=== PATIENT | female | born 1950 | race Caucasian/White ===

== ENCOUNTER → 2016-07-01 | Outpatient (CLI) | payer BC ==
--- NOTE | 2016-07-01 13:45 | US ---
EXAMINATION TYPE: US venous doppler duplex LE BI DATE OF EXAM: 07/01/2016 12:41 PM COMPARISON: 11/26/2011 CLINICAL HISTORY: 66-year-old female R22.42,R22.41,M79.661,M79.662 Pain/Swelling bilateral. Bilateral feet pain and swelling x 1 week following long car ride SIDE PERFORMED: Bilateral TECHNIQUE: The lower extremity deep venous system is examined utilizing real time linear array sonog anuja with graded compression, doppler sonography and color-flow sonography. FINDINGS: VESSELS IMAGED: External Iliac Vein (EIV) Common Femoral Vein Deep Femoral Vein Greater Saphenous Vein * Femoral Vein Popliteal Vein Small Saphenous Vein * Proximal Calf Veins (* superficial vessels) Right Leg: Appears negative for DVT Left Leg: Appears negative for DVT IMPRESSION: No evidence for DVT within the bilateral lower extremities imaged from the groin to the upper calves.
== END | disposition home or self-care (01) ==
LOC: RADUSWWP 11:46
PROVIDERS: ATTEND Internal Medicine Hematology & Oncology
DX: M79.661 Pain in right lower leg (principal); M79.662 Pain in left lower leg; R22.43 Localized swelling, mass and lump, lower limb, bilateral
CPT/HCPCS: 93970

== ENCOUNTER → 2018-06-22 | Outpatient (CLI) | payer MEDICARE, OTHER ==
--- NOTE | 2018-06-22 15:22 | US ---
"EXAMINATION TYPE: US kidneys/renal and bladder DATE OF EXAM: 06/22/2018 COMPARISON: US 02/12/2010, CT 01/30/2010 CLINICAL HISTORY: R94.4 Abnormal Renal Function. Mesenteric cancer tumors [id number] per patient EXAM MEASUREMENTS: Right Kidney: 7.3 x 3.0 x 4.1 cm Left Kidney: 8.2 x 3.3 x 3.4 cm Right Kidney: Measuring small. Mild dilation of the renal pelvis Left Kidney: Measuring small. Nodular contour Bladder: Not well visualized due to large volume of pelvic ascites visualized Bilateral Jets seen: No Ascites visualized in the RUQ and midline pelvis. There is increased cortical echogenicity in the right kidney which is diminished in size from normal range. There is fullness of right renal pelvis and calyces. Left kidney is slightly larger within imp roved cortical thickness, some vague hypoechoic areas in the cortex could reflect subcentimeter cysts . There is nonsimple fluid anterior superior to the bladder towards end of study. IMPRESSION: Suspect mild right-sided hydronephrosis. Atrophy in both kidneys noted. Nonsimple moderate to severe pelvic ascites. Advise further investigation with CT. A Yellow level critical message alert has been initiated for Humble Woody MD via the [employer] 36 0 | Critical Results System on 06/22/2018 3:20 PM. This message alert has been sent to Humble Woody MD via the preferences provided by the clinician for the receipt of Radiology Critical Findings. [facility], [place] [id number]."
== END | disposition home or self-care (01) ==
LOC: RADUSWWP 14:47
PROVIDERS: ATTEND Internal Medicine Hematology & Oncology
DX: N26.1 Atrophy of kidney (terminal) (principal); R18.8 Other ascites
CPT/HCPCS: 76770

== ENCOUNTER 2018-07-21 08:58 | Day surgery (SDC) | payer MEDICARE, OTHER ==
[2018-07-21 09:57] VITALS: RESP 16; TEMP 97.8
[2018-07-21 10:05] LABS: Mean Platelet Volume 7.1; Platelet Count 629 k/uL (150-450)
[2018-07-21 11:15] VITALS: BP 143/76; PULSE 82
--- NOTE | 2018-07-21 13:40 | US ---
Therapeutic paracentesis. DATE OF EXAM: 07/21/2018 CLINICAL HISTORY: Ascites The procedure was discussed with the patient. The risks, complications, benefits, and alternatives we re discussed and any questions were answered. Informed consent was obtained. The patient was placed s upine on the ultrasound table and prepped and draped in the usual sterile fashion. All elements of maximal barrier technique were utilized. Under ultrasound guidance, access into the right lower quadrant was obtained, via the paracentesis catheter system and direct ultrasound guidanc e. Approximately 2.3 liters of straw-colored fluid was removed. The patient was stable throughout the pr ocedure and remained stable upon discharge from Department of Radiology. IMPRESSION: Successful therapeutic paracentesis under ultrasound guidance.
== END 2018-07-21 11:30 | disposition home or self-care (01) ==
LOC: RADPROMAIN 08:58
PROVIDERS: ATTEND Internal Medicine Hematology & Oncology
DX: R18.8 Other ascites (principal); C7A.1 Malignant poorly differentiated neuroendocrine tumors; K21.0 Gastro-esophageal reflux disease with esophagitis; K57.90 Diverticulosis of intestine, part unspecified, without perforation or abscess without bleeding; F17.200 Nicotine dependence, unspecified, uncomplicated; Z79.891 Long term (current) use of opiate analgesic; Z79.899 Other long term (current) drug therapy
CPT/HCPCS: 36415; 49083; 82565; 85049; 85610

== ENCOUNTER 2018-08-05 18:18 | Inpatient (IN) | payer MEDICARE, OTHER ==
[2018-08-05] MEDS ORDERED: ONDANSETRON 4 MG/2 ML VIAL IVP STA (18:53)
[2018-08-05] MEDS ORDERED: SODIUM CHLORIDE 0.9% 1,000 ML IV STA (18:53)
[2018-08-05] MEDS ORDERED: HYDROmorphone 1 MG/ML 1 ML SYRINGE IVP STA ×2 (18:53→21:44)
--- NOTE | 2018-08-05 19:03 | ED ---
Abdominal Pain HPI - General Chief Complaint: Abdominal Pain Stated Complaint: abdominal pain Time Seen by Provider: 08/05/18 18:37 Source: patient Mode of arrival: wheelchair Limitations: no limitations - History of Present Illness Initial Comments: 68 year-old female patient with history of neuroendocrine tumors, not currently receiving any chemotherapy presents to the emergency department today for evaluation of abdominal pain. Patient states that she generally has some level of abdominal pain however this morning the pain increases significantly. Patient states that the pain is mostly located in the left lower quadrant abdomen however her entire abdomen does hurt. Patient states she is having some mild low back pain with this. Patient denies any nausea or vomiting with this. Denies any constipation or diarrhea. Denies any known fever or chills. Patient denies any hematochezia or melena. Patient denies any history of diverticulitis . Patient did have labs done at the beginning of July, did show urinary tract infection however patient states she has not received any antibiotics for this. Patient denies any recent rash, shortness breath, chest pain, numbness, tingling, dizziness, weakness, hematuria, dysuria, urinary urgency, urinary frequency, headache, visual changes, or any other complaints. - Related Data Home Medications Medication Instructions Recorded Confirmed Calcitriol 0.5 mcg PO WEEKLY 07/19/18 07/21/18 Hydrocodone/Acetaminophen [[place] 1 tab PO Q6HR PRN 07/19/18 07/21/18 5-325] Magnesium Oxide [Mag-Ox] 400 mg PO DAILY 07/19/18 07/21/18 Non-Formulary Drug [Non Formulary 25 mg PO WEEKLY 07/19/18 07/21/18 Drug] Non-Formulary Drug [Non Formulary 325 mg PO BID 07/19/18 07/21/18 Drug] Sodium Bicarbonate Tab 1,300 mg PO BID 07/19/18 07/21/18 fentaNYL 75MCG/HR PATCH [Duragesic 1 patch TRANSDERM Q72H 07/19/18 07/21/18 75MCG/HR] Allergies Allergy/AdvReac Type Severity Reaction Status Date / Time No Known Allergies Allergy Verified 08/05/18 18:29 Review of Systems ROS Statement: Those systems with pertinent positive or pertinent negative responses have been documented in the HPI. ROS Other: All systems not noted in ROS Statement are negative. Past Medical History Past Medical History: Cancer Additional Past Medical History / Comment(s): neuroendocrine tumor, renal insuff icency History of Any Multi-Drug Resistant Organisms: None Reported Past Surgical History: Orthopedic Surgery Additional Past Surgical History / Comment(s): right leg broken and surgery times 2 Past Anesthesia/Blood Transfusion Reactions: No Reported Reaction Past Psychological History: No Psychological Hx Reported Smoking Status: Current every day smoker Past Alcohol Use History: None Reported Past Drug Use History: None Reported - Past Family History Mother Family Medical History: CVA/TIA Additional Family Medical History / Comment(s): blood clot General Exam Limitations: no limitations General appearance: alert, in no apparent distress, other (Physical well- developed, well-nourished adult female patient in no acute distress. Vital signs upon presentation are temperature 99.2F, pulse 98, respirations 18, blood pressure 146/81, pulse ox 98% on room air.) Eye exam: Present: normal appearance, PERRL, EOMI. Absent: scleral icterus, conjunctival injection, periorbital swelling ENT exam: Present: normal exam, normal oropharynx, mucous membranes moist Respiratory exam: Present: normal lung sounds bilaterally. Absent: respiratory distress, wheezes, rales, rhonchi, stridor Cardiovascular Exam: Present: regular rate, normal rhythm, normal heart sounds. Absent: systolic murmur, diastolic murmur, rubs, gallop, clicks GI/Abdominal exam: Present: soft, tenderness (Generalized tenderness, worse over the left lower quadrant), normal bowel sounds. Absent: distended, guarding, rebound, rigid Back exam: Present: normal inspection. Absent: CVA tenderness (R), CVA tenderness (L) Neurological exam: Present: alert, oriented X3, CN II-XII intact Psychiatric exam: Present: normal affect, normal mood Skin exam: Present: warm, dry, intact, normal color. Absent: rash Course Vital Signs 08/05/18 08/05/18 08/06/18 18:27 21:45 02:00 Temperature 99.2 F Pulse Rate 98 83 78 Respiratory 18 20 18 Rate Blood Pressure 146/81 150/83 144/78 O2 Sat by Pulse 98 99 98 Oximetry Medical Decision Making - Medical Decision Making 68 year-old female patient with past medical history significant for neuroe ndocrine tumors diagnosed in 2010, last received chemotherapy 2 months ago presents to the emergency department today for evaluation of abdominal pain. Physical examination did reveal left lower quadrant and suprapubic abdominal tenderness. CT of the abdomen and pelvis was performed and showed moderate to severe ascites and right-sided hydronephrosis. Urine was positive for infection. This was sent for culture. Patient also found to be hypokalemic, this will be replaced. Patient will be admitted to [facility]. I did discuss findings and plan with the patient, she is agreeable. - Lab Data Result diagrams: 08/05/18 19:35 08/05/18 19:35 Lab Results 08/05/18 08/05/18 08/05/18 Range/Units 19:35 19:35 19:35 WBC 9.0 (3.8-10.6) k/uL RBC 3.77 L (3.80-5.40) m/uL Hgb 10.5 L (11.4-16.0) gm/dL Hct 33.2 L (34.0-46.0) % MCV 87.9 (80.0-100.0) fL MCH 27.7 (25.0-35.0) pg MCHC 31.6 (31.0-37.0) g/dL RDW 21.6 H (11.5-15.5) % Plt Count 395 (150-450) k/uL Neutrophils % 89 % Lymphocytes % 5 % Monocytes % 5 % Eosinophils % 1 % Basophils % 0 % Neutrophils # 7.9 H (1.3-7.7) k/uL Lymphocytes # 0.4 L (1.0-4.8) k/uL Monocytes # 0.4 (0-1.0) k/uL Eosinophils # 0.1 (0-0.7) k/uL Basophils # 0.0 (0-0.2) k/uL Hypochromasia Slight Anisocytosis Moderate Sodium 135 L (137-145) mmol/L Potassium 2.8 L (3.5-5.1) mmol/L Chloride 93 L (98-107) mmol/L Carbon Dioxide 31 H (22-30) mmol/L Anion Gap 11 mmol/L BUN 17 (7-17) mg/dL Creatinine 1.40 H (0.52-1.04) mg/dL Est GFR (CKD-EPI)AfAm 45 (>60 ml/min/1.73 sqM) Est GFR (CKD-EPI)NonAf 39 (>60 ml/min/1.73 sqM) Glucose 96 (74-99) mg/dL Plasma Lactic Acid Ilia 1.2 (0.7-2.0) mmol/L Calcium 7.1 L (8.4-10.2) mg/dL Total Bilirubin 0.6 (0.2-1.3) mg/dL AST 13 L (14-36) U/L ALT 10 (9-52) U/L Alkaline Phosphatase 229 H (38-126) U/L Total Protein 6.0 L (6.3-8.2) g/dL Albumin 3.0 L (3.5-5.0) g/dL Amylase <30 L (30-110) U/L Lipase 32 (23-300) U/L Urine Color Urine Appearance (Clear) Urine pH (5.0-8.0) Ur Specific [place] (1.001-1.035) Urine Protein (Negative) Urine Glucose (UA) (Negative) Urine Ketones (Negative) Urine Blood (Negative) Urine Nitrite (Negative) Urine Bilirubin (Negative) Urine Urobilinogen (<2.0) mg/dL Ur Leukocyte Esterase (Negative) Urine RBC (0-5) /hpf Urine WBC (0-5) /hpf Urine WBC Clumps (None) /hpf Ur Squamous Epith Cells (0-4) /hpf Urine Bacteria (None) /hpf Hyaline Casts (0-2) /lpf 08/05/18 Range/Units 22:29 WBC (3.8-10.6) k/uL RBC (3.80-5.40) m/uL Hgb (11.4-16.0) gm/dL Hct (34.0-46.0) % MCV (80.0-100.0) fL MCH (25.0-35.0) pg MCHC (31.0-37.0) g/dL RDW (11.5-15.5) % Plt Count (150-450) k/uL Neutrophils % % Lymphocytes % % Monocytes % % Eosinophils % % Basophils % % Neutrophils # (1.3-7.7) k/uL Lymphocytes # (1.0-4.8) k/uL Monocytes # (0-1.0) k/uL Eosinophils # (0-0.7) k/uL Basophils # (0-0.2) k/uL Hypochromasia Anisocytosis Sodium (137-145) mmol/L Potassium (3.5-5.1) mmol/L Chloride (98-107) mmol/L Carbon Dioxide (22-30) mmol/L Anion Gap mmol/L BUN (7-17) mg/dL Creatinine (0.52-1.04) mg/dL Est GFR (CKD-EPI)AfAm (>60 ml/min/1.73 sqM) Est GFR (CKD-EPI)NonAf (>60 ml/min/1.73 sqM) Glucose (74-99) mg/dL Plasma Lactic Acid Ilia (0.7-2.0) mmol/L Calcium (8.4-10.2) mg/dL Total Bilirubin (0.2-1.3) mg/dL AST (14-36) U/L ALT (9-52) U/L Alkaline Phosphatase (38-126) U/L Total Protein (6.3-8.2) g/dL Albumin (3.5-5.0) g/dL Amylase (30-110) U/L Lipase (23-300) U/L Urine Color Light Yellow Urine Appearance Cloudy H (Clear) Urine pH 7.5 (5.0-8.0) Ur Specific [place] 1.011 (1.001-1.035) Urine Protein 1+ H (Negative) Urine Glucose (UA) Negative (Negative) Urine Ketones Trace H (Negative) Urine Blood Small H (Negative) Urine Nitrite Positive H (Negative) Urine Bilirubin Negative (Negative) Urine Urobilinogen <2.0 (<2.0) mg/dL Ur Leukocyte Esterase Large H (Negative) Urine RBC 5 (0-5) /hpf Urine WBC >182 H (0-5) /hpf Urine WBC Clumps Many H (None) /hpf Ur Squamous Epith Cells 1 (0-4) /hpf Urine Bacteria Moderate H (None) /hpf Hyaline Casts 2 (0-2) /lpf - Radiology Data Radiology results: report reviewed, image reviewed CT abdomen and pelvis without contrast was obtained. Report was reviewed in its entirety. Impression by Dr. Coles shows mild right-sided hydronephrosis redemonstrated without obstructing calculus clearly seen, this is not significantly changed from prior study. Moderate to severe abdominal pelvic ascites with multiple tiny bilateral pleural effusions. Etiology uncertain. No bowel obstruction. Suboptimal evaluation without enteric contrast Disposition Clinical Impression: Abdominal pain, Ascites, Hypokalemia, Urinary tract infection Disposition: ADMITTED IP TO THIS [facility] Condition: Serious Decision to Admit Reason: Admit from EC Decision Date: 08/06/18 Decision Time: 01:08
[2018-08-05 19:47] LABS: Anisocytosis Moderate; Basophils % (A) 0 %; Eosinophils # (A) 0.1 k/uL (0-0.7); Eosinophils % (A) 1 %; HCT 33.2 % (34.0-46.0); HGB 10.5 gm/dL (11.4-16.0); Hypochromasia Slight; Lymphocytes # (A) 0.4 k/uL (1.0-4.8); Lymphocytes % (A) 5 %; MCH 27.7 pg (25.0-35.0); MCHC 31.6 g/dL (31.0-37.0); MCV 87.9 fL (80.0-100.0); Mean Platelet Volume 7.5; Monocytes # (A) 0.4 k/uL (0-1.0); Monocytes % (A) 5 %; Neutrophils # (A) 7.9 k/uL (1.3-7.7); Neutrophils % (A) 89 %; Platelet Count 395 k/uL (150-450); RBC 3.77 m/uL (3.80-5.40); RDW 21.6 % (11.5-15.5)
[2018-08-05 19:59] LABS: ALT 10 U/L (9-52); AST 13 U/L (14-36); Alkaline Phosphatase 229 U/L (38-126); Amylase <30 U/L (30-110); Anion Gap 11 mmol/L; Blood Urea Nitrogen 17 mg/dL (7-17); Calcium 7.1 mg/dL (8.4-10.2); Carbon Dioxide 31 mmol/L (22-30); Chloride 93 mmol/L (98-107); Glucose 96 mg/dL (74-99); Lipase 32 U/L (23-300); Potassium 2.8 mmol/L (3.5-5.1); Sodium 135 mmol/L (137-145); Total Bilirubin 0.6 mg/dL (0.2-1.3)
--- NOTE | 2018-08-05 21:28 | CT ---
EXAMINATION TYPE: CT abdomen pelvis wo con DATE OF EXAM: 08/05/2018 HISTORY: left sided abdominal and flank pain, diarrhea CT DLP: 264.7 mGycm. Automated Exposure Control for Dose Reduction was Utilized. TECHNIQUE: CT scan of the abdomen and pelvis is performed without oral or IV contrast. COMPARISON: CT abdomen and pelvis January 30, 2010. FINDINGS: Within the limitations of a non-contrast study, the following observations are made. LUNG BASES: There are new small to tiny bilateral pleural effusions partially imaged. LIVER/GB: There are hyperdense gallstones filling gallbladder lumen. PANCREAS: No significant abnormality is seen. SPLEEN: No significant abnormality is seen. ADRENALS: No significant abnormality is seen. KIDNEYS: No renal stones are evident bilaterally. No left-sided hydronephrosis. There is mild right-s ided hydronephrosis with extrarenal pelvis redemonstrated without obstructing calculus clearly seen. BOWEL: Evaluation of bowel is suboptimal secondary to lack of enteric contrast. Stomach is poorly dis tended and thus suboptimally evaluated. There is no suspicious small or large bowel dilatation. GENITAL ORGANS: Anteverted uterus is seen in both ovaries felt present near axial image 96 felt [place] l in size. LYMPH NODES: No definitive greater than 1cm abdominal or pelvic lymph nodes are appreciated. Slightly suboptimal without IV contrast. OSSEOUS STRUCTURES: Metallic hardware in the right proximal femur is partially imaged. There is moder ate narrowing of both hip joints. There is moderate to severe narrowing lumbosacral junction. OTHER: Moderate to severe abdominal and pelvic ascites is present. There is mild to moderate calcifie d plaque in the aorta extending into branch vessels. IMPRESSION: 1. Mild right-sided hydronephrosis redemonstrated without obstructing calculus clearly seen, this is not significantly changed from prior study. 2. Moderate to severe abdominal and pelvic ascites with multiple tiny bilateral pleural effusions. Et iology uncertain. Imaging guided paracentesis for diagnostic and/or therapeutic benefits can be perfo rmed to further evaluate if desired. 3. No bowel obstruction. Suboptimal evaluation without enteric contrast.
[2018-08-05 23:12] LABS: Appearance,Urine Cloudy (Clear); Bacteria,Urine Moderate /hpf; Bilirubin,Urine Negative (Negative); Blood,Urine Small (Negative); Color,Urine Light Yellow; Glucose,Urine (UA) Negative (Negative); Hyaline Casts,Urine 2 /lpf (0-2); Ketones,Urine Trace (Negative); Leukocyte Esterase,Urine Large (Negative); Nitrite,Urine Positive (Negative); PH, Urine 7.5 (5.0-8.0); Protein,Urine 1+ (Negative); RBC,Urine 5 /hpf (0-5); Specific Gravity,Urine 1.011 (1.001-1.035); Squamous Epithelial Cell,Urine 1 /hpf (0-4); Urobilinogen,Urine <2.0 mg/dL (<2.0); WBC,Urine >182 /hpf (0-5)
[2018-08-06] MEDS ORDERED: Potassium Replacement Protocol 1 EACH MISC MISCELLANE PRN (00:08)
[2018-08-06] MEDS ORDERED: NALOXONE 0.4 MG/ML 1 ML VIAL IV PRN (01:06)
[2018-08-06] MEDS ORDERED: ONDANSETRON 4 MG/2 ML VIAL IVP PRN (01:06)
[2018-08-06] MEDS: POTASSIUM CHLORIDE 10 MEQ in WATER FOR INJECTION 1 100ML.BAG IVPB SCH ×6 (02:00→10:06)
[2018-08-06] MEDS ORDERED: HYDROcodone/APAP 5-325MG 1 EACH TAB PO PRN (02:57)
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
[2018-08-06] MEDS: HYDROmorphone 1 MG/ML 1 ML SYRINGE IVP PRN ×5 (03:14→21:01)
[2018-08-06] MEDS: metroNIDAZOLE 500 MG TAB PO SCH ×4 (04:51→21:01)
[2018-08-06] MEDS: SODIUM BICARBONATE TAB 650 MG TAB PO SCH ×2 (08:18→21:01)
[2018-08-06] MEDS: NICOTINE 21MG/24HR PATCH TRANSDERM SCH (08:19)
[2018-08-06] MEDS: HEPARIN SODIUM,PORCINE 5,000 UNIT/ML 1 ML VIAL SQ SCH ×2 (08:19→16:49)
[2018-08-06 11:55] LABS: Albumin 2.4 g/dL (3.5-5.0); Calcium 6.6 mg/dL (8.4-10.2); Magnesium 1.4 mg/dL (1.6-2.3); Potassium 4.3 mmol/L (3.5-5.1); Total Bilirubin 0.6 mg/dL (0.2-1.3); Total Protein 4.9 g/dL (6.3-8.2)
--- NOTE | 2018-08-06 12:14 | P.PN ---
Progress Note - Text Progress Note Date: 08/06/18 68-year-old female with PMH of neuroendocrine tumors presents the ED for abdominal pain. CT abdomen and pelvis showing mild right-sided hydronephrosis which is redemonstrated, moderate to severe abdominal and pelvic ascites. Patient is admitted for UTI and abdominal pain likely secondary to large ascites, rule out SBP. Patient was seen this morning. No acute events overnight. Patient reports considerable improvement in her abdominal pain since being started on Dilaudid. She denies any nausea or vomiting. She reports 2 weeks of multiple episodes of watery diarrhea. States that she saw her oncologist recently and underwent paracentesis. Patient is in no acute distress. Patient is alert and oriented 3 Assessment and Plan 1. Urinary tract infection 2. Large ascites, unknown etiology 3. Acute diarrhea, rule out colitis 4. Hypokalemia 5. History of neuroendocrine tumor 6. CKD stage III 7. Severe protein calorie malnutrition UA shows positive nitrite, large leukocyte esterase. Plan: Rocephin IV. Follow urine culture. Follow blood culture. Unknown etiology. Likely cause of abdominal pain. States that she recently underwent paracentesis with her oncologist. Plan: IR consultation for paracentesis. Follow oncology recommendations. Rule out infectious cause due to history of antibiotic use. Plans: Follow C. diff. Continue Flagyl by mouth and Rocephin IV. Potassium 2.8 likely secondary to diarrhea. Plans: Replace via protocol. Daily BMP. Plans: Follow-up in the outpatient setting. Creatinine 1.40, within normal limits for previous admissions. Plans: Avoid nephrotoxins. Daily BMP. Plans: Follow-up dietitian.
[2018-08-06 13:39] VITALS: BMI 14.3
[2018-08-07] MEDS: HYDROmorphone 1 MG/ML 1 ML SYRINGE IVP PRN ×7 (01:05→23:41)
[2018-08-07] MEDS: HEPARIN SODIUM,PORCINE 5,000 UNIT/ML 1 ML VIAL SQ SCH ×3 (01:08→16:59)
--- NOTE | 2018-08-07 08:37 | P.PN ---
Subjective Progress Note Date: 08/07/18 Principal diagnosis: Abdominal pain Patient was seen and examined. No acute events overnight. Patient continues to report abdominal pain, generalized but worse in the bilateral lower quadrants. Pain is described as cramping and twisting in nature. Patient reports not having a bowel movement since admission. She denies any dysuria or urinary frequency. States that she attempted [employer] chicken salad sandwich yesterday, had some abdominal pain and nausea but no vomiting. She denies any chest pain, shortness of breath or palpitations. Objective - Vital Signs Vital signs: Vital Signs Temp 98.2 F 08/07/18 05:00 Pulse 93 08/07/18 05:00 Resp 16 08/07/18 05:00 BP 138/75 08/07/18 05:00 Pulse Ox 93 L 08/07/18 05:00 Intake & Output 08/06/18 08/07/18 08/07/18 18:59 06:59 18:59 Intake Total 300 Balance 300 Weight 41.73 kg Intake: Intake, IV Titration 300 Amount Potassium Chloride 10 meq 300 In Water For Injection 1 100ml.bag @ 100 mls/hr IVPB Q1HR [facility] Rx#: [id number] Other: # Voids 2 - Exam General: [non toxic], [no distress], [cachectic] Derm: [warm], [dry] Head: [atraumatic], [normocephalic], [symmetric] Eyes: [EOMI], [no lid lag], [anicteric sclera] Mouth: [no lip lesion], [mucus membranes moist] Cardiovascular: [S1S2 reg], [no murmur], [positive posterior tibial pulse bilateral], Lungs: [Decreased breath sounds bilateral], [no rhonchi, no rales] , [no accessory muscle use] Abdominal: [soft], [tenderness to palpation of the bilateral lower quadrants without rebound], [no guarding, nondistended], [no appreciable organomegaly] Ext: [no gross muscle atrophy], [no edema], [no contractures] Neuro: [no focal neuro deficits] Psych: [Alert], [oriented], [appropriate affect] - Labs CBC & Chem 7: 08/05/18 19:35 08/06/18 10:47 Labs: Abnormal Lab Results - Last 24 Hours (Table) 08/06/18 Range/Units 10:47 Sodium 134 L (137-145) mmol/L Creatinine 1.32 H (0.52-1.04) mg/dL Glucose 61 L (74-99) mg/dL Calcium 6.6 L (8.4-10.2) mg/dL Magnesium 1.4 L (1.6-2.3) mg/dL AST 11 L (14-36) U/L Alkaline Phosphatase 157 H (38-126) U/L Total Protein 4.9 L (6.3-8.2) g/dL Albumin 2.4 L (3.5-5.0) g/dL Microbiology - Last 24 Hours (Table) 08/05/18 19:35 Blood Culture - Preliminary Blood No Growth after 24 hours 08/05/18 22:29 Urine Culture - Preliminary Urine,Voided Assessment and Plan Assessment: Assessment and Plan 1. Urinary tract infection 2. Large ascites, unknown etiology 3. Acute diarrhea, rule out colitis 4. Hypokalemia 5. History of neuroendocrine tumor 6. CKD stage III 7. Severe protein calorie malnutrition UA shows positive nitrite, large leukocyte esterase. Plan: Rocephin IV. Follow urine culture. Follow blood culture. Unknown etiology. Likely cause of abdominal pain. States that she recently underwent paracentesis with her oncologist. Plan: IR consultation for paracentesis. Follow oncology recommendations. Rule out infectious cause due to history of antibiotic use. Plans: Follow C. diff. Continue Flagyl by mouth and Rocephin IV. Potassium 2.8 likely secondary to diarrhea. Plans: Normal today. Replace via protocol. Daily BMP. Plans: Follow-up in the outpatient setting. Creatinine 1.40-1.32, within normal limits for previous admissions. Plans: Avoid nephrotoxins. Daily BMP. Plans: Follow-up dietitian. Patient admitted for abdominal pain thought to be secondary to ascites and UTI. She is on IV and antibiotics by mouth. IR consultation pending. Nothing by annelise baker for possible paracentesis. Oncology consulted.
[2018-08-07] MEDS: SODIUM BICARBONATE TAB 650 MG TAB PO SCH ×2 (08:42→20:22)
[2018-08-07] MEDS: NICOTINE 21MG/24HR PATCH TRANSDERM SCH (08:42)
[2018-08-07] MEDS: metroNIDAZOLE 500 MG TAB PO SCH ×3 (08:42→21:53)
[2018-08-07 09:06] LABS: INR 1.1 (<1.2); Prothrombin Time 11.4 sec (9.0-12.0)
[2018-08-07 09:09] LABS: Albumin 2.5 g/dL (3.5-5.0); Calcium 6.8 mg/dL (8.4-10.2); Potassium 4.1 mmol/L (3.5-5.1); Total Bilirubin 0.4 mg/dL (0.2-1.3); Total Protein 5.2 g/dL (6.3-8.2)
[2018-08-07 09:15] LABS: Anisocytosis Moderate; Basophils % (A) 0 %; Eosinophils # (A) 0.2 k/uL (0-0.7); Eosinophils % (A) 2 %; HGB 9.4 gm/dL (11.4-16.0); Hypochromasia Moderate; Lymphocytes # (A) 0.8 k/uL (1.0-4.8); Lymphocytes % (A) 9 %; MCH 27.4 pg (25.0-35.0); MCHC 30.2 g/dL (31.0-37.0); MCV 90.7 fL (80.0-100.0); Macrocytosis Slight; Mean Platelet Volume 7.7; Monocytes # (A) 0.6 k/uL (0-1.0); Monocytes % (A) 7 %; Neutrophils # (A) 7.4 k/uL (1.3-7.7); Neutrophils % (A) 81 %; Platelet Count 364 k/uL (150-450); RBC 3.42 m/uL (3.80-5.40); RDW 21.6 % (11.5-15.5); WBC 9.2 k/uL (3.8-10.6)
[2018-08-07 15:36] LABS: Appearance,BF Cloudy; Color,BF Yellow; RBC, Body Fluid 960 /uL
[2018-08-07 15:37] LABS: Nucleated Cells, Body Fluid 88 /uL
[2018-08-07 15:38] LABS: Mononuclear WBC,Body Fluid 95 %; Polynuclear WBC,Body Fluid 5 %; Total Cells Counted,Body Fluid 100
--- NOTE | 2018-08-07 15:51 | US ---
EXAMINATION TYPE: US paracentesis abd w/image DATE OF EXAM: 08/07/2018 COMPARISON: NONE HISTORY: Ascites. PROCEDURE: Maximal barrier technique was utilized. The skin overlying a suitable pocket of fluid was localized with ultrasound and the overlying skin was prepped and draped. Ultrasound was utilized with sterile technique. Lidocaine was used for local anesthesia and a skin tamia made with a scalpel. Catheter was advanced under direct ultrasound guidance into a suitable pocket of fluid and approximately 1 liters of serous fluid were removed. Catheter was withdrawn and hemostasis achieved. There is no immediate complication; the patient is discharged in stable condition. IMPRESSION: STATUS POST ULTRASOUND GUIDED PARACENTESIS FOR PALLIATION OF ASCITES. THIS PROCEDURE WA S PERFORMED BY THE UNDERSIGNED. Specimen sent for laboratory analysis.
--- NOTE | 2018-08-07 19:19 | P.CONS ---
History of Present Illness - Reason for Consult Consult date: 08/07/18 NET, recurrent ascites Requesting physician: Brandt Lux - Chief Complaint abd pain - History of Present Illness Mrs. Murillo is a very long-standing patient of Dr. 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 Patient was also on ant icoagulation for history of DVT diagnosed in March 2010-discontinued about 2013 secondary to GI bleed). Patient has been treated with 20mg Sandostatin LAR intramuscularly and Afinitor (dose has fluctuated as well as the twice a day dosing based on patient tolerance). She has had relatively stable disease over the years with follow-up imaging as ordered. Over the years she has had co mplaints of abdominal pain, mostly after eating is the aggravating factor. She treats with fentanyl and [place], she will also hold her afinitor if she is having symptoms. Unfortunately though, the last 2 weeks she has been having recurrent, severe ascites. This is absolutely brand-new for her. Her abdominal discomfort is much more intense and her typical regimen of fentanyl and [place] is no longer adequate. Patient states that she can eat, denies nausea or vomiting, no chest pain, cough, difficulty in breathing, abdominal distention is currently okay being she just had a paracentesis. She had para last week as well. She does have some swelling in the ankles and feet, this is not completely unusual for her. She was to be scheduled for a PET scan here in the next week or so. In the last few years she has had 2 traumatic falls requiring repair of fractures. Review of Systems 14 point review of systems is negative except as stated in HPI Past Medical History Past Medical History: Cancer, Deep Vein Thrombosis (DVT), GI Bleed Additional Past Medical History / Comment(s): neuroendocrine tumor, renal insufficency History of Any Multi-Drug Resistant Organisms: None Reported Past Surgical History: Orthopedic Surgery Additional Past Surgical History / Comment(s): right leg broken and surgery times 2 Past Anesthesia/Blood Transfusion Reactions: No Reported Reaction Past Psychological History: No Psychological Hx Reported Smoking Status: Current every day smoker Past Alcohol Use History: None Reported Past Drug Use History: None Reported - Past Family History Mother Family Medical History: CVA/TIA Additional Family Medical History / Comment(s): blood clot Medications and Allergies Home Medications Medication Instructions Recorded Confirmed Type Calcitriol 0.5 mcg PO MOWEFR 07/19/18 08/06/18 History Hydrocodone/Acetaminophen [[place] 1 tab PO Q6HR PRN 07/19/18 08/06/18 History 5-325] Magnesium Oxide [Mag-Ox] 400 mg PO DAILY 07/19/18 08/06/18 History Sodium Bicarbonate Tab 1,300 mg PO BID 07/19/18 08/06/18 History fentaNYL 75MCG/HR PATCH [Duragesic 1 patch TRANSDERM Q72H 07/19/18 08/06/18 History 75MCG/HR] Ergocalciferol (Vitamin D2) 50,000 unit PO WE 08/06/18 08/06/18 History [Vitamin D2] Ferrous Sulfate [Feosol] 325 mg PO DAILY 08/06/18 08/06/18 History Metoclopramide [Reglan] 10 mg PO AC-TID 08/06/18 08/06/18 History Potassium 99 mg PO DAILY 08/06/18 08/06/18 History Allergies Allergy/AdvReac Type Severity Reaction Status Date / Time No Known Allergies Allergy Verified 08/06/18 08:02 Physical Exam Vitals: Vital Signs Temp Pulse Resp BP Pulse Ox 08/07/18 13:00 97.4 F L 85 17 159/79 95 08/07/18 11:55 85 18 158/73 97 08/07/18 11:48 86 18 147/85 97 08/07/18 11:31 80 18 139/74 96 08/07/18 11:21 83 18 163/70 98 08/07/18 11:02 88 18 142/70 96 08/07/18 05:00 98.2 F 93 16 138/75 93 L 08/06/18 21:00 97.8 F 97 16 116/68 96 Intake and Output 08/07/18 08/07/18 08/07/18 06:59 14:59 22:59 Other: # Voids 2 2 - Constitutional General appearance: cooperative, no acute distress, thin - EENT Eyes: anicteric sclerae, EOMI, poor dentition ENT: hearing grossly normal, normal oropharynx - Neck Neck: no lymphadenopathy - Respiratory Respiratory: bilateral: CTA, diminished - Cardiovascular Rhythm: regular Heart sounds: normal: S1, S2 Abnormal Heart Sounds: no systolic murmur, no diastolic murmur, no rub, no S3 Gallop, no S4 Gallop, no click, no other foot Peripheral Edema: bilateral: 2+ - Gastrointestinal General gastrointestinal: no absent bowel sounds, no decreased bowel sounds, no distended, no hepatomegaly, no hyperactive bowel sounds, normal bowel sounds, no organomegaly, no rigid, no scaphoid, soft, no splenomegaly, tenderness, no umbilical hernia, no ventral hernia - Neurologic Neurologic: CNII-XII intact - Musculoskeletal Musculoskeletal: generalized weakness - Psychiatric Psychiatric: A&O x's 3, appropriate affect, intact judgment & insight Results CBC & Chem 7: 08/07/18 08:33 08/07/18 07:56 Labs: Abnormal Lab Results - Last 24 Hours (Table) 08/07/18 08/07/18 Range/Units 07:56 08:33 RBC 3.42 L (3.80-5.40) m/uL Hgb 9.4 L (11.4-16.0) gm/dL Hct 31.0 L (34.0-46.0) % MCHC 30.2 L (31.0-37.0) g/dL RDW 21.6 H (11.5-15.5) % Lymphocytes # 0.8 L (1.0-4.8) k/uL Sodium 135 L (137-145) mmol/L BUN 18 H (7-17) mg/dL Creatinine 1.51 H (0.52-1.04) mg/dL Calcium 6.8 L (8.4-10.2) mg/dL AST 9 L (14-36) U/L Alkaline Phosphatase 170 H (38-126) U/L Total Protein 5.2 L (6.3-8.2) g/dL Albumin 2.5 L (3.5-5.0) g/dL Microbiology - Last 24 Hours (Table) 08/07/18 12:00 Body Fluid Culture - Preliminary Ascites Fluid 08/05/18 22:29 Urine Culture - Preliminary Urine,Voided Gram Neg Bacilli 08/05/18 19:35 Blood Culture - Preliminary Blood No Growth after [address] scan - abdomen: report reviewed CT scan - pelvis: report reviewed Assessment and Plan (1) Neuro-endocrine carcinoma Narrative/Plan: Patient has a long-standing history of neuro tumor. She has been treated with monthly Sandostatin and Afinitor, low dose, 1-2 times a day based on what she can tolerate. She had imaging on 07/27 that was reviewed with Dr. Woody that looked fairly stable, but, the recurrent ascites was concerning so, he ordered PET scan to be done very soon, pt has her PET scans at [place], no date or time yet. She is due for her sandostatin this week. We will see if she is discharged before , if so, she can get in office. Cont Afinitor 5mg BID PRN (pt takes if she can tolerate. Ok to hold for now due to abd pain) Current Visit: No Status: Chronic Priority: Low Code(s): C7A.8 - OTHER MALIGNANT NEUROENDOCRINE TUMORS SNOMED Code(s): 169585011 (2) Abdominal pain Narrative/Plan: Suspect r/t ascites. Pain meds adjusted for comfort Current Visit: Yes Status: Acute Priority: High Code(s): R10.9 - UNSPECIFIED ABDOMINAL PAIN SNOMED Code(s): 09952176 (3) Ascites Narrative/Plan: S/P paracentesis. Cytology pending. Current Visit: Yes Status: Acute Priority: High Code(s): R18.8 - OTHER ASCITES SNOMED Code(s): 345802796
[2018-08-07] MEDS: HYDROcodone/APAP 10-325MG 1 EACH TAB PO PRN (21:53)
[2018-08-07] MEDS ORDERED: HYDROmorphone 1 MG/ML 1 ML SYRINGE IVP STA (22:07)
[2018-08-08] MEDS: HEPARIN SODIUM,PORCINE 5,000 UNIT/ML 1 ML VIAL SQ SCH ×4 (00:35→22:45)
[2018-08-08] MEDS: HYDROmorphone 1 MG/ML 1 ML SYRINGE IVP PRN ×8 (02:07→22:43)
[2018-08-08] MEDS: SODIUM BICARBONATE TAB 650 MG TAB PO SCH ×2 (07:49→21:05)
[2018-08-08] MEDS: metroNIDAZOLE 500 MG TAB PO SCH ×3 (07:49→21:05)
[2018-08-08] MEDS: NICOTINE 21MG/24HR PATCH TRANSDERM SCH (07:49)
--- NOTE | 2018-08-08 08:17 | P.PN ---
Subjective Progress Note Date: 08/08/18 Principal diagnosis: Abdominal pain Patient was seen and examined. No acute events overnight. Patient reports yesterday night she had his extreme episode of abdominal pain. Pain was located in the right side of the abdomen. Pain was 10 out of 10, described as twisting bowel. She denies any nausea or vomiting. No fever or chills. Tolerating diet slowly. She denies any chest pain, shortness of breath or palpitations. Underwent paracentesis yesterday. Objective - Vital Signs Vital signs: Vital Signs Temp 98.1 F 08/08/18 04:43 Pulse 90 08/08/18 04:43 Resp 18 08/08/18 04:43 BP 165/84 08/08/18 04:43 Pulse Ox 99 08/08/18 04:43 Intake & Output 08/07/18 08/08/18 08/08/18 18:59 06:59 18:59 Intake Total 250 Balance 250 Intake: Intake, IV Titration 50 Amount cefTRIAXone 1 gm In 50 Sodium Chloride 0.9% 50 ml @ 100 mls/hr IVPB Q24H REPLACED BY [facility] Rx#:[id number] Oral 200 Other: Voiding Method Toilet # Voids 2 1 - Exam General: [non toxic], [no distress], [cachectic] Derm: [warm], [dry] Head: [atraumatic], [normocephalic], [symmetric] Eyes: [EOMI], [no lid lag], [anicteric sclera] Mouth: [no lip lesion], [mucus membranes moist] Cardiovascular: [S1S2 reg], [no murmur], [positive DP pulse bilateral] Lungs: [Decreased breath sounds bilateral], [no rhonchi, no rales] , [no accessory muscle use] Abdominal: [soft], [tenderness to palpation of the bilateral lower quadrants without rebound], [no guarding, nondistended], [no appreciable organomegaly], [positive right-sided CVA tenderness] Ext: [no gross muscle atrophy], [no edema], [no contractures] Neuro: [no focal neuro deficits] Psych: [Alert], [oriented], [appropriate affect] - Labs CBC & Chem 7: 08/07/18 08:33 08/07/18 07:56 Labs: Abnormal Lab Results - Last 24 Hours (Table) 08/07/18 08/07/18 Range/Units 07:56 08:33 RBC 3.42 L (3.80-5.40) m/uL Hgb 9.4 L (11.4-16.0) gm/dL Hct 31.0 L (34.0-46.0) % MCHC 30.2 L (31.0-37.0) g/dL RDW 21.6 H (11.5-15.5) % Lymphocytes # 0.8 L (1.0-4.8) k/uL Sodium 135 L (137-145) mmol/L BUN 18 H (7-17) mg/dL Creatinine 1.51 H (0.52-1.04) mg/dL Calcium 6.8 L (8.4-10.2) mg/dL AST 9 L (14-36) U/L Alkaline Phosphatase 170 H (38-126) U/L Total Protein 5.2 L (6.3-8.2) g/dL Albumin 2.5 L (3.5-5.0) g/dL Microbiology - Last 24 Hours (Table) 08/07/18 12:00 Gram Stain - Preliminary Ascites Fluid Body Fluid Culture - Preliminary 08/05/18 19:35 Blood Culture - Preliminary Blood No Growth after 48 hours 08/05/18 22:29 Urine Culture - Preliminary Urine,Voided Gram Neg Bacilli Assessment and Plan Assessment: Assessment and Plan 1. Urinary tract infection 2. Large ascites, unknown etiology 3. Acute diarrhea, rule out colitis 4. Hypokalemia 5. History of neuroendocrine tumor 6. CKD stage III 7. Severe protein calorie malnutrition UA shows positive nitrite, large leukocyte esterase. Urine culture gram- negative bacilli. Blood culture negative at 48 hours. Plan: Rocephin IV. Follow urine culture. Follow blood culture. Unknown etiology. Likely cause of abdominal pain. States that she recently underwent paracentesis with her oncologist. Underwent paracentesis yesterday. Plan: Ascitic fluid analysis shows no concerns for SBP. Ascitic Gram stain and culture pending. Follow oncology recommendations. Follow KUB. Rule out infectious cause due to history of antibiotic use. Plans: No diarrhea since admission. Continue Flagyl by mouth and Rocephin IV. Potassium 2.8 likely secondary to diarrhea. Plans: Normal today. Replace via protocol. Daily BMP. Plans: Follow-up in the outpatient setting. Creatinine 1.40-1.32, within normal limits for previous admissions. Plans: Avoid nephrotoxins. Daily BMP. Plans: Follow-up dietitian. Patient admitted for abdominal pain thought to be secondary to ascites and UTI. She is on IV and antibiotics by mouth. Ascitic fluid analysis showed no concerns for SBP, Gram stain and culture is pending. Urine culture also pending. DC planning based on culture results.
--- NOTE | 2018-08-08 11:36 | XR ---
EXAMINATION TYPE: XR KUB DATE OF EXAM: 08/08/2018 10:24 AM CLINICAL HISTORY: Left-sided abdominal pain, diarrhea and flank pain TECHNIQUE: Single supine KUB image of the abdomen is obtained. COMPARISON: CT dated 08/05/2018 FINDINGS: Colonic air-fluid levels are seen within nondilated bowel compatible with this patient's pr ovided history of diarrhea/colonic malabsorption. The colon measures up to 5.2 cm. No small bowel dil atation is seen. Diffuse osseous demineralization is present. Lung bases are well aerated. Postsurgic al change of the right femur is partially visualized as well as moderate femoral acetabular arthropat hy. No suspicious ossification is seen in the abdomen or pelvis. IMPRESSION: Colonic air-fluid levels compatible with this patient's provided history of diarrhea/colo sunil malabsorption. No dilated bowel. Nonobstructive bowel gas pattern.
[2018-08-08] MEDS ORDERED: HYDROmorphone 1 MG/ML 1 ML SYRINGE ONE (15:00)
--- NOTE | 2018-08-08 16:31 | P.PN ---
Subjective Progress Note Date: 08/08/18 Principal diagnosis: abd pain and ascites In follow-up today patient reports an episode of severe abdominal pain. It was not associated with eating as her episodes usually are. It happened about 4 hours after dinner. It took over an hour to recover from, the pain meds did not really help. KUB x-ray today was nondiagnostic. Patient states desire to have a bowel movement just before this episode happened, she continues to have very soft stool denies mucus or bloody stool, no nausea or vomiting. Objective - Vital Signs Vital signs: Vital Signs Temp 97.9 F 08/08/18 12:13 Pulse 96 08/08/18 12:13 Resp 16 08/08/18 12:13 BP 152/77 08/08/18 12:13 Pulse Ox 97 08/08/18 12:13 Intake & Output 08/07/18 08/08/18 08/08/18 18:59 06:59 18:59 Intake Total 250 Balance 250 Intake: Intake, IV Titration 50 Amount cefTRIAXone 1 gm In 50 Sodium Chloride 0.9% 50 ml @ 100 mls/hr IVPB Q24H [facility] Rx#:[id number] Oral 200 Other: Voiding Method Toilet Toilet # Voids 2 1 3 - Constitutional General appearance: Present: cooperative, no acute distress, thin - EENT Eyes: Present: anicteric sclerae, EOMI, poor dentition ENT: Present: hearing grossly normal - Respiratory Respiratory: bilateral: diminished - Cardiovascular Heart sounds: normal: S1, S2 Abnormal Heart Sounds: Absent: systolic murmur, diastolic murmur, rub, S3 Gallop, S4 Gallop, click, other - Peripheral edema foot Peripheral Edema: bilateral: 1+, Pitting - Gastrointestinal General gastrointestinal: Present: normal bowel sounds, soft, tenderness - Neurologic Neurologic: Present: CNII-XII intact - Musculoskeletal Musculoskeletal: Present: generalized weakness - Psychiatric Psychiatric: Present: A&O x's 3, appropriate affect, intact judgment & insight - Labs CBC & Chem 7: 08/07/18 08:33 08/07/18 07:56 Labs: Microbiology - Last 24 Hours (Table) 08/07/18 12:00 Gram Stain - Preliminary Ascites Fluid Body Fluid Culture - Preliminary 08/05/18 22:29 Urine Culture - Final Urine,Voided Klebsiella pneumoniae 08/05/18 19:35 Blood Culture - Preliminary Blood No Growth after 48 hours - Imaging and Cardiology Abdominal x-ray: report reviewed Assessment and Plan (1) Neuro-endocrine carcinoma Narrative/Plan: Patient has a long-standing history of neuroendocrine tumor, treated with monthly Sandostatin and Afinitor. She had imaging on 07/27 that was reviewed with Dr. Woody that looked fairly stable, but, the recurrent ascites was concerning, PET will be ordered once she is discharged. She is due for her sandostatin this week. We will see if she is discharged before , if so, she can get in office. Cont Afinitor 5mg BID PRN (pt takes if she can tolerate. Ok to hold for now due to abd pain). Current Visit: No Status: Chronic Priority: Low Code(s): C7A.8 - OTHER MALIGNANT NEUROENDOCRINE TUMORS SNOMED Code(s): 050736659 (2) Abdominal pain Narrative/Plan: Patient had an acute episode of abdominal cramping that was severe last evening. Typically patients abdominal pain follows the pattern of happening about 10-15 minutes after eating. This happened about 4-5 hours after eating. No other episodes of pain, patient will continue to monitor. X-ray KUB was relatively unremarkable. Continue pain management as prescribed for now. Current Visit: Yes Status: Acute Priority: High Code(s): R10.9 - UNSPECIFIED ABDOMINAL PAIN SNOMED Code(s): 12729130 (3) Ascites Narrative/Plan: Pending cytology. Current Visit: Yes Status: Acute Priority: High Code(s): R18.8 - OTHER ASCITES SNOMED Code(s): 136732309 (4) Iron deficiency anemia Narrative/Plan: Patient's iron studies from 1 month ago do show significant iron deficiency. Patient has not had any form of iron supplementation. Parenteral iron supplement while inpatient Current Visit: Yes Status: Chronic Priority: Medium Code(s): D50.9 - IRON DEFICIENCY ANEMIA, UNSPECIFIED SNOMED Code(s): 25731447 Plan: We'll discuss case with Dr. james mathis and order any additional studies. PET scan will be planned for next week, will get appt date and time to pt
[2018-08-08] MEDS: SODIUM FERRIC GLUCONAT-SUCROSE 125 MG in SODIUM CHLORIDE 0.9% 100 ML IVPB SCH (17:22)
[2018-08-09] MEDS: HYDROmorphone 1 MG/ML 1 ML SYRINGE IVP PRN ×9 (01:09→22:57)
[2018-08-09] MEDS: HEPARIN SODIUM,PORCINE 5,000 UNIT/ML 1 ML VIAL SQ SCH ×3 (08:42→23:54)
[2018-08-09] MEDS: SODIUM BICARBONATE TAB 650 MG TAB PO SCH ×2 (08:42→20:56)
[2018-08-09] MEDS: NICOTINE 21MG/24HR PATCH TRANSDERM SCH (08:42)
--- NOTE | 2018-08-09 08:42 | P.PN ---
Subjective Progress Note Date: 08/09/18 Principal diagnosis: Abdominal pain, ascites Patient seen and examined. No acute events overnight. Patient reports slight improvement in her abdominal pain, but continued, 7 out of 10 in severity, attempting to stay 7 pain medications. Pain is located in the bilateral lower q uadrant. Complained of diarrhea, but has not had bowel movement since being here. KUB showing signs of possible colitis. She denies any chest pain, shortness of breath or palpitations. No nausea or vomiting. No fever or chills. Objective - Vital Signs Vital signs: Vital Signs Temp 98.0 F 08/09/18 04:43 Pulse 100 08/09/18 04:43 Resp 16 08/09/18 04:43 BP 161/93 08/09/18 04:43 Pulse Ox 98 08/09/18 04:43 Intake & Output 08/08/18 08/09/18 08/09/18 18:59 06:59 18:59 Intake Total 1260 Balance 1260 Intake: Intake, IV Titration 600 Amount Sodium Ferric Gluconat- 500 Sucrose 125 mg In Sodium Chloride 0.9% 100 ml @ 100 mls/hr IVPB DAILY [facility] Rx#:[id number] cefTRIAXone 1 gm In 100 Sodium Chloride 0.9% 50 ml @ 100 mls/hr IVPB Q24H [facility] Rx#:[id number] Oral 660 Other: Voiding Method Toilet Toilet # Voids 3 2 - Exam General: [non toxic], [no distress], [cachectic] Derm: [warm], [dry] Head: [atraumatic], [normocephalic], [symmetric] Eyes: [EOMI], [no lid lag], [anicteric sclera] Mouth: [no lip lesion], [mucus membranes moist] Cardiovascular: [S1S2 reg], [no murmur], [positive DP pulse bilateral] Lungs: [Decreased breath sounds bilateral], [no rhonchi, no rales] , [no accessory muscle use] Abdominal: [soft], [tenderness to palpation of the bilateral lower quadrants without rebound], [no guarding, nondistended], [no appreciable organomegaly], [p ositive right-sided CVA tenderness] Ext: [no gross muscle atrophy], [no edema], [no contractures] Neuro: [no focal neuro deficits] Psych: [Alert], [oriented], [appropriate affect] - Labs CBC & Chem 7: 08/07/18 08:33 08/07/18 07:56 Labs: Microbiology - Last 24 Hours (Table) 08/05/18 19:35 Blood Culture - Preliminary Blood No Growth after 72 hours 08/07/18 12:00 Gram Stain - Preliminary Ascites Fluid Body Fluid Culture - Preliminary 08/05/18 22:29 Urine Culture - Final Urine,Voided Klebsiella pneumoniae Assessment and Plan Assessment: Assessment and Plan 1. Urinary tract infection 2. Large ascites, unknown etiology 3. Acute diarrhea, rule out colitis 4. Hypokalemia 5. History of neuroendocrine tumor 6. CKD stage III 7. Severe protein calorie malnutrition UA shows positive nitrite, large leukocyte esterase. Urine culture shows Klebsiella. Blood culture negative at 72 hours. Plan: Rocephin IV. Follow blood culture. Unknown etiology. Likely cause of abdominal pain. States that she recently underwent paracentesis with her oncologist. Underwent paracentesis yesterday. KUB shows signs of diarrhea or colonic malabsorption. Plan: Ascitic fluid analysis shows no concerns for SBP. Ascitic Gram stain and culture pending, cytology shows mixed inflammatory cells with rare mildly atypical epithelioid cells. Follow oncology recommendations. Follow C. difficile. Rule out infectious cause due to history of antibiotic use. Plans: No diarrhea since admission. Continue Flagyl by mouth and Rocephin IV. Follow C. difficile. Potassium 2.8 likely secondary to diarrhea. Plans: Normal today. Replace via protocol. Daily BMP. Plans: Follow-up in the outpatient setting. Creatinine 1.40-1.32-1.51, within normal limits for previous admissions. Plans: Avoid nephrotoxins. Daily BMP. Plans: Follow-up dietitian. Patient admitted for abdominal pain thought to be secondary to ascites and UTI. She is on IV and antibiotics and by mouth. Ascitic fluid analysis showed no concerns for SBP, Gram stain and culture is pending along with C. difficile. Likely DC in 1-2 days.
[2018-08-09] MEDS: metroNIDAZOLE 500 MG TAB PO SCH ×3 (08:43→21:00)
[2018-08-09] MEDS: SODIUM FERRIC GLUCONAT-SUCROSE 125 MG in SODIUM CHLORIDE 0.9% 100 ML IVPB SCH (09:51)
[2018-08-10] MEDS: HYDROmorphone 1 MG/ML 1 ML SYRINGE IVP PRN ×2 (01:41→08:42)
[2018-08-10] MEDS: HYDROcodone/APAP 10-325MG 1 EACH TAB PO PRN (04:11)
[2018-08-10 07:46] LABS: Anisocytosis Moderate; HGB 9.1 gm/dL (11.4-16.0); Hypochromasia Moderate; MCH 28.3 pg (25.0-35.0); MCHC 31.3 g/dL (31.0-37.0); MCV 90.5 fL (80.0-100.0); Macrocytosis Slight; Mean Platelet Volume 8.1; Platelet Count 325 k/uL (150-450); RDW 21.4 % (11.5-15.5); WBC 7.1 k/uL (3.8-10.6)
[2018-08-10 08:01] LABS: Calcium 6.6 mg/dL (8.4-10.2); Potassium 3.3 mmol/L (3.5-5.1)
[2018-08-10] MEDS: metroNIDAZOLE 500 MG TAB PO SCH (08:44)
[2018-08-10] MEDS: HEPARIN SODIUM,PORCINE 5,000 UNIT/ML 1 ML VIAL SQ SCH ×2 (08:44→17:15)
[2018-08-10] MEDS: SODIUM FERRIC GLUCONAT-SUCROSE 125 MG in SODIUM CHLORIDE 0.9% 100 ML IVPB SCH (08:44)
[2018-08-10] MEDS: SODIUM BICARBONATE TAB 650 MG TAB PO SCH (08:45)
[2018-08-10] MEDS: NICOTINE 21MG/24HR PATCH TRANSDERM SCH (08:45)
[2018-08-10] MEDS: POTASSIUM CHLORIDE ER 20 MEQ TAB.ER PO SCH ×2 (08:52→11:14)
[2018-08-10] MEDS ORDERED: OCTREOTIDE LAR 20 MG IM ONE (10:00)
[2018-08-10] MEDS: HYDROcodone/APAP 7.5-325MG 1 EACH TAB PO PRN ×2 (11:13→14:46)
[2018-08-10 12:51] VITALS: BP 165/99; PULSE 95; RESP 16; TEMP 98.1
--- NOTE | 2018-08-10 15:52 | US ---
EXAMINATION TYPE: US liver DATE OF EXAM: 08/10/2018 COMPARISON: CT, US for paracentesis CLINICAL HISTORY: evaluate for cirrhosis; patient stated has neuroendocrine tumor CA. EXAM MEASUREMENTS: Liver Length: 14.3 cm Gallbladder Wall: 0.2 cm CBD: 0.7 cm Right Kidney: 7.3 x 5.4 x 3.4 cm Pancreas: prominent and hyperechoic Liver: left lobe hypoechoic, target like appearance to liver mass and size = 0.9 x 1.1 x 1.0cm Gallbladder: hyperechoic lumen filled gallbladder and imaged in erect and supine positions; perichol ecystic fluid is noted. Evidence for sonographic Ortiz's sign: patient stated has chronic abdomen pain CBD: Comment Bile duct size is appropriate for the patient age. Right Kidney: prominent renal pelvis, small for size Ascites is seen in all four abdominal quadrants with largest fluid pocket seen in RLQ = 4.8cm A/P. IMPRESSION: 1. Small left lobe liver mass measuring 0.9 x 1.1 x 1.0 cm. Prostatic lesion should be considered. 2. Ascites
--- NOTE | 2018-08-10 17:16 | P.DS ---
Providers Date of admission: 08/07/18 07:47 Expected date of discharge: 08/10/18 Attending physician: Sierra Chavez MD Consults: 08/06/18 12:12 Consult Physician Stat Consulting Provider: Humble Woody Consult Reason/Comments: Neuroendocrine tumor, ascites, recent tap Do you want consulting provider notified?: Yes Primary care physician: Humble Lemuel Shattuck Hospital Course: Discharge Diagnosis: Klebsiella UTI, POA gastroenteritis Ascities with undetermined etiology Neuroendocrine Tumor CKD III Severe protein malnutrition Hospital Course: Patient is a 68-year-old female with a history of neuroendocrine tumor diagnosed in 2011 currently on Sandostatin and completed chemotherapy 2 months ago, chronic kidney disease, and chronic pain who presented to the ER with complaints of a 2 week history of diarrhea and intractable abdominal pain. In the ED she underwent an extensive evaluation. She was found have a urinary tract infection was started on IV antibiotics. She underwent a CT of the abdomen and pelvis which did not show any obstruction but did suggest moderately large ascites. Patient did have paracentesis 2 weeks prior to admission for the first time. She was admitted for further monitoring. Interventional radiology was consulted for paracentesis. She was also 9. Hypokalemic and this was replaced. C. diff was ordered but was unable to be obtained secondary to no bowel movements during hospitalization. She underwent paracentesis on 08/07 with removal of 1 L of fluid. Pathology was negative. She continued to do well and did not have any more episodes of acute diarrhea. She did have some continued abdominal pain and her Coram dose was optimized. She underwent an ultrasound of the liver which showed a possible mass. Case was discussed with oncology and plan we'll be for outpatient PET scan in the near future. Patient and have been updated on these findings and plan of care. Patient determined stable for discharge to complete an outpatient course of Vantin. Oncology has increased her home Coram dose. She was discharged in stable condition. Patient seen and examined at bedside. No diarrhea, abdominal pain better, tolerating diet. Vital signs reviewed and stable. General: non toxic, no distress, appears older than stated age Derm: warm, dry Head: atraumatic, normocephalic, symmetric Eyes: EOMI, no lid lag, anicteric sclera Mouth: no lip lesion, mucus membranes moist Cardiovascular: S1S2 reg, no murmur, positive posterior tibial pulse bilateral, Lungs: CTA bilateral, no rhonchi, no rales , no accessory muscle use Abdominal: soft, +tender to palpation diffusely, no guarding, no appreciable organomegaly Ext: no gross muscle atrophy, no edema, no contractures Neuro: CN II-XI grossly intact, no focal neuro deficits Psych: Alert, oriented, flat affect A total of 35 minutes of time were spent preparing this complex discharge summa ry . Pertinent Studies: Liver ultrasound-1 cm mass KUB-clonic air-fluid levels compatible with history of diarrhea CT abdomen and pelvis-mild right-sided hydronephrosis redemonstrated without obstructing calculus not significantly changed from prior study, moderate to severe abdominal pelvic ascites, no bowel obstruction Procedures: Paracentesis 08/07-removal of 1 L of fluid Patient Condition at Discharge: Stable Plan - Discharge Summary Discharge Rx Participant: Yes New Discharge Prescriptions: New HYDROcodone/APAP 7.5-325MG [[place] 7.5-325] 2 each PO Q4H PRN tab PRN Reason: Pain Cefpodoxime Proxetil [Vantin] 200 mg PO Q12HR #4 tab Continue fentaNYL 75MCG/HR PATCH [Duragesic 75MCG/HR] 1 patch TRANSDERM Q72H Calcitriol 0.5 mcg PO MOWEFR Sodium Bicarbonate Tab 1,300 mg PO BID Magnesium Oxide [Mag-Ox] 400 mg PO DAILY Ergocalciferol (Vitamin D2) [Vitamin D2] 50,000 unit PO WE Potassium 99 mg PO DAILY Ferrous Sulfate [Iron (65 MG Elemental)] 325 mg PO DAILY Discontinued Hydrocodone/Acetaminophen [[place] 5-325] 1 tab PO Q6HR PRN PRN Reason: Pain Metoclopramide [Reglan] 10 mg PO AC-TID Discharge Medication List Calcitriol 0.5 mcg PO MOWEFR 07/19/18 [History] Magnesium Oxide [Mag-Ox] 400 mg PO DAILY 07/19/18 [History] Sodium Bicarbonate Tab 1,300 mg PO BID 07/19/18 [History] fentaNYL 75MCG/HR PATCH [Duragesic 75MCG/HR] 1 patch TRANSDERM Q72H 07/19/18 [History] Ergocalciferol (Vitamin D2) [Vitamin D2] 50,000 unit PO WE 08/06/18 [History] Ferrous Sulfate [Iron (65 MG Elemental)] 325 mg PO DAILY 08/06/18 [History] Potassium 99 mg PO DAILY 08/06/18 [History] Cefpodoxime Proxetil [Vantin] 200 mg PO Q12HR #4 tab 08/10/18 [Rx] HYDROcodone/APAP 7.5-325MG [Coram 7.5-325] 2 each PO Q4H PRN tab 08/10/18 [Rx] Follow up Appointment(s)/Referral(s): Humble Woody MD [Primary Care Provider] - 4 Weeks (After PET scan) Activity/Diet/Wound Care/Special Instructions: Regular diet Activity as tolerated You may take 2 norco if needed for pain. Dr. Woody office is working on moving PET scan sooner. Pending Studies Pending Results: Ascitic albumin, Chromogranin A, Serotonin
--- NOTE | 2018-08-10 17:20 | P.PN ---
Subjective Progress Note Date: 08/10/18 Principal diagnosis: abd pain and ascites In f/u today pt has not had a BM for 2 days, her abd pain is controlled but, she is on a larger dose of norco at this time, she is tolerating some foods, no fever, vomiting. Objective - Vital Signs Vital signs: Vital Signs Temp 98.1 F 08/10/18 12:50 Pulse 95 08/10/18 12:50 Resp 16 08/10/18 12:50 BP 165/99 08/10/18 12:50 Pulse Ox 94 L 08/10/18 12:50 Intake & Output 08/09/18 08/10/18 08/10/18 18:59 06:59 18:59 Intake Total 100 590 Balance 100 590 Weight 41.73 kg Intake: Intake, IV Titration 100 50 Amount Sodium Ferric Gluconat- 100 Sucrose 125 mg In Sodium Chloride 0.9% 100 ml @ 100 mls/hr IVPB DAILY JONATHAN Rx#:[id number] cefTRIAXone 1 gm In 50 Sodium Chloride 0.9% 50 ml @ 100 mls/hr IVPB Q24H JONATHAN Rx#:[id number] Oral 540 Other: Voiding Method Toilet Toilet # Voids 1 - Constitutional General appearance: Present: cooperative, thin - EENT Eyes: Present: anicteric sclerae, EOMI ENT: Present: hearing grossly normal, normal oropharynx - Respiratory Respiratory: bilateral: CTA, diminished - Cardiovascular Heart sounds: normal: S1, S2 Abnormal Heart Sounds: Absent: systolic murmur, diastolic murmur, rub, S3 Gallop, S4 Gallop, click, other - Peripheral edema leg Peripheral Edema: bilateral: Trace - Gastrointestinal General gastrointestinal: Present: normal bowel sounds, scaphoid, tenderness - Neurologic Neurologic: Present: CNII-XII intact - Musculoskeletal Musculoskeletal: Present: generalized weakness, strength equal bilaterally - Psychiatric Psychiatric: Present: A&O x's 3, appropriate affect, intact judgment & insight - Labs CBC & Chem 7: 08/10/18 06:47 08/10/18 06:47 Labs: Abnormal Lab Results - Last 24 Hours (Table) 08/10/18 08/10/18 Range/Units 06:47 06:47 RBC 3.20 L (3.80-5.40) m/uL Hgb 9.1 L (11.4-16.0) gm/dL Hct 29.0 L (34.0-46.0) % RDW 21.4 H (11.5-15.5) % Sodium 134 L (137-145) mmol/L Potassium 3.3 L (3.5-5.1) mmol/L Creatinine 1.44 H (0.52-1.04) mg/dL Glucose 105 H (74-99) mg/dL Calcium 6.6 L (8.4-10.2) mg/dL Microbiology - Last 24 Hours (Table) 08/07/18 12:00 Gram Stain - Preliminary Ascites Fluid Body Fluid Culture - Preliminary 08/05/18 19:35 Blood Culture - Preliminary Blood No Growth after 96 hours - Imaging and Cardiology US - abdomen: report reviewed Assessment and Plan (1) Neuro-endocrine carcinoma Narrative/Plan: Patient has a long-standing history of neuroendocrine tumor, treated with monthly Sandostatin, the afinitor was stopped last month. She is due for her sandostatin, this was ordered for today. She had imaging on 07/27 that was reviewed with Dr. Woody that looked fairly stable, but, the recurrent ascites was concerning. He wanted PET scan to further evaluate disease. This will be re-ordered once she is discharged. US liver ordered, concerns for recurrent ascites, possibly liver disease. A 1cm liver lesion noted. No biopsy for now-pending PET Current Visit: No Status: Chronic Priority: Low Code(s): C7A.8 - OTHER MALIGNANT NEUROENDOCRINE TUMORS SNOMED Code(s): 716989900 (2) Abdominal pain Narrative/Plan: Pain meds adjusted. Pt has contract through our office. MAPS will be run. Merrill dose adjusted. She will lemon picker her narcotic prescriptions from the office after discharge. She is aware and verbalized understanding. Discussed with Attending Current Visit: Yes Status: Acute Priority: High Code(s): R10.9 - UNSPECIFIED ABDOMINAL PAIN SNOMED Code(s): 68730418 (3) Ascites Narrative/Plan: Cytology negative for gross evidence of malignancy. Serum albumin ascites gradient calculated at 0.9g/dl, suggesting that the portal hypertension is not necessarily the cause of the ascites. Discussed case with Primary Oncologist and despite the cytology being negative for malignancy, it is felt that malignancy is most likely the cause of recurrent ascites. Patient has had 2 paracentesis, smaller volume. No further intervention at this time. Patient is going to have additional imaging and follow-up in the next couple weeks. Current Visit: Yes Status: Acute Priority: High Code(s): R18.8 - OTHER ASCITES SNOMED Code(s): 445795381 (4) Iron deficiency anemia Narrative/Plan: S/P 3 doses of parenteral iron No PRBC transfusion needed today Current Visit: Yes Status: Chronic Priority: Medium Code(s): D50.9 - IRON DEFICIENCY ANEMIA, UNSPECIFIED SNOMED Code(s): 85771577
== END 2018-08-10 19:00 | disposition home or self-care (01) | DRG 689 ==
LOC: EC 18:18 → 3NMEDONC 08-06 00:52 → OBSVTOIN 08-07 07:47 → 3NMEDONC 08-08 15:45
PROVIDERS: ADMIT Internal Medicine; ATTEND Internal Medicine
PROC: 0W9G3ZZ Drainage of Peritoneal Cavity, Percutaneous Approach (ICD-10-PCS; principal; 2018-08-07)
DX: N13.6 Pyonephrosis (principal); E43 Unspecified severe protein-calorie malnutrition; R18.8 Other ascites; C76.8 Malignant neoplasm of other specified ill-defined sites; N18.3 Chronic kidney disease, stage 3 (moderate); B96.1 Klebsiella pneumoniae [K. pneumoniae] as the cause of diseases classified elsewhere; K52.9 Noninfective gastroenteritis and colitis, unspecified; D50.9 Iron deficiency anemia, unspecified; E87.6 Hypokalemia; F17.200 Nicotine dependence, unspecified, uncomplicated; G89.29 Other chronic pain; K76.9 Liver disease, unspecified; Z86.718 Personal history of other venous thrombosis and embolism; Z92.21 Personal history of antineoplastic chemotherapy; Z79.899 Other long term (current) drug therapy; Z82.3 Family history of stroke
CPT/HCPCS: 36415; 49083; 74018; 74176; 76705; 80048; 80053; 81001; 82042; 82150; 82945; 83605; 83615; 83690; 83735; 84260; 85025; 85027; 85610; 86316; 87040; 87070; 87077; 87086; 87186; 87205; 88108; 88305; 89050; 96361; 96365; 96367; 96375; 96376; 99285

== ENCOUNTER 2018-10-15 22:12 | Emergency (ER) | payer MEDICARE, OTHER ==
[2018-10-15] MEDS ORDERED: SODIUM CHLORIDE 0.9% 500 ML 500 ML IV STA (22:20)
[2018-10-15 23:15] LABS: Anisocytosis Moderate; Basophils % (A) 0 %; Eosinophils % (A) 0 %; HGB 13.4 gm/dL (11.4-16.0); Lymphocytes # (A) 0.4 k/uL (1.0-4.8); Lymphocytes % (A) 5 %; MCH 32.2 pg (25.0-35.0); MCHC 32.7 g/dL (31.0-37.0); MCV 98.6 fL (80.0-100.0); Macrocytosis Slight; Mean Platelet Volume 8.2; Monocytes # (A) 0.4 k/uL (0-1.0); Monocytes % (A) 4 %; Neutrophils # (A) 8.7 k/uL (1.3-7.7); Neutrophils % (A) 90 %; Platelet Count 195 k/uL (150-450); RBC 4.16 m/uL (3.80-5.40); RDW 20.7 % (11.5-15.5); WBC 9.7 k/uL (3.8-10.6)
[2018-10-15] MEDS ORDERED: HYDROmorphone 1 MG/ML 1 ML SYRINGE IVP STA (23:15)
[2018-10-15 23:25] LABS: Partial Thromboplastin Time 24.7 sec (22.0-30.0); Prothrombin Time 10.4 sec (9.0-12.0)
[2018-10-15 23:26] LABS: Albumin 2.9 g/dL (3.5-5.0); Calcium 7.5 mg/dL (8.4-10.2); Magnesium 1.8 mg/dL (1.6-2.3); Potassium 3.3 mmol/L (3.5-5.1); Total Bilirubin 0.4 mg/dL (0.2-1.3)
[2018-10-16 00:51] VITALS: TEMP 97.4
[2018-10-16] MEDS ORDERED: POTASSIUM CHLORIDE ER 20 MEQ TAB.ER PO STA (01:07)
[2018-10-16 01:25] VITALS: RESP 14
--- NOTE | 2018-10-16 01:48 | ED ---
General Adult HPI - General Chief complaint: Abdominal Pain Stated complaint: Abd pain Time Seen by Provider: 10/15/18 22:20 Source: patient, RN notes reviewed, old records reviewed Mode of arrival: wheelchair Limitations: physical limitation - History of Present Illness Initial comments: 68-year-old female patient past history significant for anesthetic colon cancer presents to ED with abdominal pain. Patient reports that she has abdominal pain baseline and this is normal for her, however has been slightly worse today. Patient denies any other new or concerning symptoms. Denies any chest pain shortness of breath. Denies other complaints. Systemic: Pt denies fatigue, fever/chills, rash. Pt denies weakness, night sweats, weight loss. Neuro: Pt denies headache, visual disturbances, syncope or pre-syncope. HEENT: Pt denies ocular discharge or irritation, otalgia, rhinorrhea, pharyngitis or notable lymphadenopathy. Cardiopulmonary: Pt denies chest pain, SOB, heart palpitations, dyspnea on exertion. Abdominal/GI: Pt denies n/v/d. : Pt denies dysuria, burning w/ urination, frequency/urgency. Denies new onset urinary or bowel incontinence. MSK: Pt denies myalgia, loss of strength or function in extremities. Neuro: Pt denies new onset weakness, paresthesias. PE: Constitutional: NAD, AOX3, Pt has pleasant affect. HEENT: NC/AT, trachea midline, neck supple, no lymphadenopathy. Posterior pharynx non erythematous, without exudates. External ears appear normal, without discharge. Mucous membranes moist. Eyes PERRLA, EOM intact. There is no scleral icterus. No pallor noted. Cardiopulmonary: RRR, no murmurs, rubs or gallops, no JVD noted. Lungs CTAB in anterior and posterior schultz. Abdominal exam: Abdomen soft and non-distended. Ascites noted, mild: Buccal tenderness to palpation. No ecchymoses.. Bowel sounds active in LLQ. No hepatosplenomegaly. No ecchymosis Neuro: CN II-XII grossly intact. No nuchal rigidity. No raccon eyes, no staton sign, no hemotympanum. No cervical spinal tenderness. MSK: No posterior calf tenderness bilaterally, homans sign negative bilaterally. Posterior tibialis and radial pulse +2 bilaterally. Sensation intact in upper and lower extremities. Full active ROM in upper and lower extremities, 5/5 stregnth. MDM: 68-year-old female patient past history of metastatic cancer presents to ED with abdominal pain worse than her baseline. Patient will sign displayed mild tachycardia likely secondary to pain, resolved after analgesia. Physical exam displayed ascitic abdomen, with 10 to palpation in the epigastric region. No ecchymoses. Shared decision making patient, patient not wish to have any imaging performed, response symptomatic treatment. Laboratory investigations were overall noncompressive. Creatinine moderately worse, patient rehydrated. Patient wishes to be discharged and will follow up with her oncologist as scheduled tomorrow. Return precautions discussed. Case discussed in depth with Dr. Owens. - Related Data Home Medications Medication Instructions Recorded Confirmed Calcitriol 0.5 mcg PO MOWEFR 07/19/18 10/15/18 Magnesium Oxide [Mag-Ox] 400 mg PO DAILY 07/19/18 10/15/18 fentaNYL 75MCG/HR PATCH [Duragesic 1 patch TRANSDERM Q72H 07/19/18 10/15/18 75MCG/HR] Ergocalciferol (Vitamin D2) 50,000 unit PO WE 08/06/18 10/15/18 [Vitamin D2] Ferrous Sulfate [Iron (65 MG 325 mg PO BID 08/06/18 10/15/18 Elemental)] Calcium Carbonate 500 mg PO DAILY 10/15/18 10/15/18 Esomeprazole Magnesium [NexIUM] 40 mg PO DAILY 10/15/18 10/15/18 Furosemide [Lasix] 20 mg PO DAILY 10/15/18 10/15/18 HYDROcodone/APAP 7.5-325MG [[place] 1 tab PO Q4H PRN 10/15/18 10/15/18 7.5-325] Loperamide [Imodium] 2 mg PO QID 10/15/18 10/15/18 Metoclopramide HCl [Reglan] 10 mg PO AC-TID 10/15/18 10/15/18 Sodium Bicarbonate 650 mg PO BID 10/15/18 10/15/18 Zolpidem Tartrate [Ambien] 10 mg PO HS 10/15/18 10/15/18 Allergies Allergy/AdvReac Type Severity Reaction Status Date / Time No Known Allergies Allergy Verified 10/15/18 23:31 Review of Systems ROS Statement: Those systems with pertinent positive or pertinent negative responses have been documented in the HPI. ROS Other: All systems not noted in ROS Statement are negative. Past Medical History Past Medical History: Cancer, Deep Vein Thrombosis (DVT), GERD/Reflux, GI Bleed Additional Past Medical History / Comment(s): neuroendocrine tumor, renal insufficency, anemia, diverticulosis, insomnia History of Any Multi-Drug Resistant Organisms: None Reported Past Surgical History: Orthopedic Surgery Additional Past Surgical History / Comment(s): right leg broken and surgery times 2 Past Anesthesia/Blood Transfusion Reactions: No Reported Reaction Past Psychological History: Depression Smoking Status: Current every day smoker Past Alcohol Use History: None Reported Past Drug Use History: None Reported - Past Family History Mother Family Medical History: CVA/TIA Additional Family Medical History / Comment(s): blood clot General Exam Limitations: physical limitation Course Vital Signs 10/15/18 10/16/18 10/16/18 22:14 00:50 01:24 Temperature 97.8 F 97.4 F L Pulse Rate 114 H 103 H 98 Respiratory 18 22 14 Rate Blood Pressure 112/68 121/74 122/73 O2 Sat by Pulse 97 94 L 97 Oximetry 10/16/18 02:18 Temperature 97.4 F L Pulse Rate 92 Respiratory 14 Rate Blood Pressure 126/71 O2 Sat by Pulse 95 Oximetry Medical Decision Making - Lab Data Result diagrams: 10/15/18 23:00 10/15/18 23:00 Lab Results 10/15/18 10/15/18 10/15/18 Range/Units 23:00 23:00 23:00 WBC 9.7 (3.8-10.6) k/uL RBC 4.16 (3.80-5.40) m/uL Hgb 13.4 (11.4-16.0) gm/dL Hct 41.0 (34.0-46.0) % MCV 98.6 (80.0-100.0) fL MCH 32.2 (25.0-35.0) pg MCHC 32.7 (31.0-37.0) g/dL RDW 20.7 H (11.5-15.5) % Plt Count 195 (150-450) k/uL Neutrophils % 90 % Lymphocytes % 5 % Monocytes % 4 % Eosinophils % 0 % Basophils % 0 % Neutrophils # 8.7 H (1.3-7.7) k/uL Lymphocytes # 0.4 L (1.0-4.8) k/uL Monocytes # 0.4 (0-1.0) k/uL Eosinophils # 0.0 (0-0.7) k/uL Basophils # 0.0 (0-0.2) k/uL Anisocytosis Moderate Macrocytosis Slight PT (9.0-12.0) sec INR (<1.2) APTT (22.0-30.0) sec Sodium 135 L (137-145) mmol/L Potassium 3.3 L (3.5-5.1) mmol/L Chloride 101 (98-107) mmol/L Carbon Dioxide 22 (22-30) mmol/L Anion Gap 12 mmol/L BUN 45 H (7-17) mg/dL Creatinine 1.95 H (0.52-1.04) mg/dL Est GFR (CKD-EPI)AfAm 30 (>60 ml/min/1.73 sqM) Est GFR (CKD-EPI)NonAf 26 (>60 ml/min/1.73 sqM) Glucose 107 H (74-99) mg/dL Plasma Lactic Acid Ilia 1.7 (0.7-2.0) mmol/L Calcium 7.5 L (8.4-10.2) mg/dL Magnesium 1.8 (1.6-2.3) mg/dL Total Bilirubin 0.4 (0.2-1.3) mg/dL AST 14 (14-36) U/L ALT 14 (9-52) U/L Alkaline Phosphatase 232 H (38-126) U/L Troponin I (0.000-0.034) ng/mL Total Protein 6.0 L (6.3-8.2) g/dL Albumin 2.9 L (3.5-5.0) g/dL 10/15/18 10/15/18 Range/Units 23:00 23:00 WBC (3.8-10.6) k/uL RBC (3.80-5.40) m/uL Hgb (11.4-16.0) gm/dL Hct (34.0-46.0) % MCV (80.0-100.0) fL MCH (25.0-35.0) pg MCHC (31.0-37.0) g/dL RDW (11.5-15.5) % Plt Count (150-450) k/uL Neutrophils % % Lymphocytes % % Monocytes % % Eosinophils % % Basophils % % Neutrophils # (1.3-7.7) k/uL Lymphocytes # (1.0-4.8) k/uL Monocytes # (0-1.0) k/uL Eosinophils # (0-0.7) k/uL Basophils # (0-0.2) k/uL Anisocytosis Macrocytosis PT 10.4 (9.0-12.0) sec INR 1.0 (<1.2) APTT 24.7 (22.0-30.0) sec Sodium (137-145) mmol/L Potassium (3.5-5.1) mmol/L Chloride (98-107) mmol/L Carbon Dioxide (22-30) mmol/L Anion Gap mmol/L BUN (7-17) mg/dL Creatinine (0.52-1.04) mg/dL Est GFR (CKD-EPI)AfAm (>60 ml/min/1.73 sqM) Est GFR (CKD-EPI)NonAf (>60 ml/min/1.73 sqM) Glucose (74-99) mg/dL Plasma Lactic Acid Ilia (0.7-2.0) mmol/L Calcium (8.4-10.2) mg/dL Magnesium (1.6-2.3) mg/dL Total Bilirubin (0.2-1.3) mg/dL AST (14-36) U/L ALT (9-52) U/L Alkaline Phosphatase (38-126) U/L Troponin I <0.012 (0.000-0.034) ng/mL Total Protein (6.3-8.2) g/dL Albumin (3.5-5.0) g/dL Disposition Clinical Impression: Abdominal pain Disposition: HOME SELF-CARE Condition: Stable Instructions (If sedation given, give patient instructions): Abdominal Pain (ED) Additional Instructions: Patient to adhere to previously discussed treatment plan and will take medication(s) as directed. Patient to follow up with PCP in 1-2 days. Patient to return to ED if symptoms do not improve. Follow-up with primary care provider and oncologist tomorrow scheduled. Return to ER if condition worsens. Is patient prescribed a controlled substance at d/c from ED?: No Referrals: Humble Woody MD [Primary Care Provider] - 1-2 days
[2018-10-16 02:20] VITALS: BP 126/71; PULSE 92
--- NOTE | 2018-10-17 03:19 | ED ---
Medical Decision Making - Lab Data Result diagrams: 10/15/18 23:00 10/15/18 23:00 Lab Results 10/15/18 10/15/18 10/15/18 Range/Units 23:00 23:00 23:00 WBC 9.7 (3.8-10.6) k/uL RBC 4.16 (3.80-5.40) m/uL Hgb 13.4 (11.4-16.0) gm/dL Hct 41.0 (34.0-46.0) % MCV 98.6 (80.0-100.0) fL MCH 32.2 (25.0-35.0) pg MCHC 32.7 (31.0-37.0) g/dL RDW 20.7 H (11.5-15.5) % Plt Count 195 (150-450) k/uL Neutrophils % 90 % Lymphocytes % 5 % Monocytes % 4 % Eosinophils % 0 % Basophils % 0 % Neutrophils # 8.7 H (1.3-7.7) k/uL Lymphocytes # 0.4 L (1.0-4.8) k/uL Monocytes # 0.4 (0-1.0) k/uL Eosinophils # 0.0 (0-0.7) k/uL Basophils # 0.0 (0-0.2) k/uL Anisocytosis Moderate Macrocytosis Slight PT (9.0-12.0) sec INR (<1.2) APTT (22.0-30.0) sec Sodium 135 L (137-145) mmol/L Potassium 3.3 L (3.5-5.1) mmol/L Chloride 101 (98-107) mmol/L Carbon Dioxide 22 (22-30) mmol/L Anion Gap 12 mmol/L BUN 45 H (7-17) mg/dL Creatinine 1.95 H (0.52-1.04) mg/dL Est GFR (CKD-EPI)AfAm 30 (>60 ml/min/1.73 sqM) Est GFR (CKD-EPI)NonAf 26 (>60 ml/min/1.73 sqM) Glucose 107 H (74-99) mg/dL Plasma Lactic Acid [place] 1.7 (0.7-2.0) mmol/L Calcium 7.5 L (8.4-10.2) mg/dL Magnesium 1.8 (1.6-2.3) mg/dL Total Bilirubin 0.4 (0.2-1.3) mg/dL AST 14 (14-36) U/L ALT 14 (9-52) U/L Alkaline Phosphatase 232 H (38-126) U/L Troponin I (0.000-0.034) ng/mL Total Protein 6.0 L (6.3-8.2) g/dL Albumin 2.9 L (3.5-5.0) g/dL 10/15/18 10/15/18 Range/Units 23:00 23:00 WBC (3.8-10.6) k/uL RBC (3.80-5.40) m/uL Hgb (11.4-16.0) gm/dL Hct (34.0-46.0) % MCV (80.0-100.0) fL MCH (25.0-35.0) pg MCHC (31.0-37.0) g/dL RDW (11.5-15.5) % Plt Count (150-450) k/uL Neutrophils % % Lymphocytes % % Monocytes % % Eosinophils % % Basophils % % Neutrophils # (1.3-7.7) k/uL Lymphocytes # (1.0-4.8) k/uL Monocytes # (0-1.0) k/uL Eosinophils # (0-0.7) k/uL Basophils # (0-0.2) k/uL Anisocytosis Macrocytosis PT 10.4 (9.0-12.0) sec INR 1.0 (<1.2) APTT 24.7 (22.0-30.0) sec Sodium (137-145) mmol/L Potassium (3.5-5.1) mmol/L Chloride (98-107) mmol/L Carbon Dioxide (22-30) mmol/L Anion Gap mmol/L BUN (7-17) mg/dL Creatinine (0.52-1.04) mg/dL Est GFR (CKD-EPI)AfAm (>60 ml/min/1.73 sqM) Est GFR (CKD-EPI)NonAf (>60 ml/min/1.73 sqM) Glucose (74-99) mg/dL Plasma Lactic Acid [place] (0.7-2.0) mmol/L Calcium (8.4-10.2) mg/dL Magnesium (1.6-2.3) mg/dL Total Bilirubin (0.2-1.3) mg/dL AST (14-36) U/L ALT (9-52) U/L Alkaline Phosphatase (38-126) U/L Troponin I <0.012 (0.000-0.034) ng/mL Total Protein (6.3-8.2) g/dL Albumin (3.5-5.0) g/dL - EKG Data -: EKG Interpreted by Me (and Dr. Owens) EKG Comments: Ventricular rate 13, patient follow 112, QRS 82, QT/QTC 366 is 479. Sinus tachycardia, anterior infarct age indeterminate. No concern for acute ischemia. Disposition Clinical Impression: Abdominal pain Disposition: HOME SELF-CARE Condition: Stable Instructions (If sedation given, give patient instructions): Abdominal Pain (ED) Additional Instructions: Patient to adhere to previously discussed treatment plan and will take medication(s) as directed. Patient to follow up with PCP in 1-2 days. Patient to return to ED if symptoms do not improve. Follow-up with primary care provider and oncologist tomorrow scheduled. Return to ER if condition worsens. Is patient prescribed a controlled substance at d/c from ED?: No Referrals: Humble Woody MD [Primary Care Provider] - 1-2 days
== END 2018-10-16 02:00 | disposition home or self-care (01) ==
LOC: EC 22:12
DX: R10.9 Unspecified abdominal pain (principal); R18.8 Other ascites; R79.89 Other specified abnormal findings of blood chemistry; F17.200 Nicotine dependence, unspecified, uncomplicated; K21.9 Gastro-esophageal reflux disease without esophagitis; G47.00 Insomnia, unspecified; Z79.899 Other long term (current) drug therapy; Z87.19 Personal history of other diseases of the digestive system; Z85.038 Personal history of other malignant neoplasm of large intestine
CPT/HCPCS: 36415; 93005; 80053; 83605; 83735; 84484; 85025; 85610; 85730; 96374; 96361; 99284; J1170

== ENCOUNTER 2018-10-16 11:16 | Inpatient (IN) | payer MEDICARE, OTHER ==
[2018-10-16] MEDS ORDERED: SODIUM CHLORIDE 0.9% 1,000 ML IV STA (12:28)
[2018-10-16] MEDS ORDERED: HYDROmorphone 1 MG/ML 1 ML SYRINGE IVP STA ×2 (12:28→14:59)
--- NOTE | 2018-10-16 12:31 | ED ---
General Adult HPI - General Chief complaint: Abdominal Pain Stated complaint: trouble swallowing, sent from [facility] Time Seen by Provider: 10/16/18 11:35 Source: patient, RN notes reviewed Mode of arrival: wheelchair Limitations: no limitations - History of Present Illness Initial comments: This is a 68-year-old female who presents to the emergency department with a history of end or Neoplasms. Patient states she always has abdominal pain and over the last 2 weeks she's developed difficulty swallowing. She struck with Dr. Woody when he wanted her admitted to the hospital. Patient states she is not eating much or drinking anything because of the difficulty swallowing over the last 2 weeks per patient states her abdominal pain also is gotten worse but it is same pain just more intense per patient denies any vomiting and states she has chronic diarrhea. Patient denies any fever chills. Patient denies any chest pain difficulty breathing or shortness of breath per patient denies any recent cough. Patient denies headache patient denies numbness weakness. Patient denies any lightheadedness dizziness or near syncopal episode. - Related Data Home Medications Medication Instructions Recorded Confirmed Calcitriol 0.5 mcg PO MOWEFR 07/19/18 10/16/18 Magnesium Oxide [Mag-Ox] 400 mg PO DAILY 07/19/18 10/16/18 fentaNYL 75MCG/HR PATCH [Duragesic 1 patch TRANSDERM Q72H 07/19/18 10/16/18 75MCG/HR] Ergocalciferol (Vitamin D2) 50,000 unit PO WE 08/06/18 10/16/18 [Vitamin D2] Ferrous Sulfate [Iron (65 MG 325 mg PO BID 08/06/18 10/16/18 Elemental)] Calcium Carbonate 500 mg PO DAILY 10/15/18 10/16/18 Esomeprazole Magnesium [NexIUM] 40 mg PO DAILY 10/15/18 10/16/18 Furosemide [Lasix] 20 mg PO DAILY 10/15/18 10/16/18 HYDROcodone/APAP 7.5-325MG [[place] 1 tab PO Q4H PRN 10/15/18 10/16/18 7.5-325] Loperamide [Imodium] 2 mg PO QID 10/15/18 10/16/18 Metoclopramide HCl [Reglan] 10 mg PO AC-TID 10/15/18 10/16/18 Sodium Bicarbonate 650 mg PO BID 10/15/18 10/16/18 Zolpidem Tartrate [Ambien] 10 mg PO HS 10/15/18 10/16/18 Capecitabine [Xeloda] 500 mg PO BID 10/16/18 10/16/18 Prochlorperazine [Compazine] 10 mg PO TID PRN 10/16/18 10/16/18 Sulfamethox-Tmp 800-160Mg [Bactrim 1 tab PO MOWEFR 10/16/18 10/16/18 DS 800-160 mg] Temozolomide [Temodar] 250 mg PO DIRECTED 10/16/18 10/16/18 Allergies Allergy/AdvReac Type Severity Reaction Status Date / Time No Known Allergies Allergy Verified 10/16/18 11:52 Review of Systems ROS Statement: Those systems with pertinent positive or pertinent negative responses have been documented in the HPI. ROS Other: All systems not noted in ROS Statement are negative. Past Medical History Past Medical History: Cancer, Deep Vein Thrombosis (DVT), GERD/Reflux, GI Bleed Additional Past Medical History / Comment(s): neuroendocrine tumor, renal insuff icency, anemia, diverticulosis, insomnia History of Any Multi-Drug Resistant Organisms: None Reported Past Surgical History: Orthopedic Surgery Additional Past Surgical History / Comment(s): right leg broken and surgery times 2 Past Anesthesia/Blood Transfusion Reactions: No Reported Reaction Past Psychological History: Depression Smoking Status: Current every day smoker Past Alcohol Use History: None Reported Past Drug Use History: None Reported - Past Family History Mother Family Medical History: CVA/TIA Additional Family Medical History / Comment(s): blood clot General Exam - General Exam Comments Initial Comments: GENERAL: Patient is well-developed and well-nourished. Patient is nontoxic and well- hydrated and is in mild distress. ENT: Neck is soft and supple. No significant lymphadenopathy is noted. Oropharynx is clear. Dry mucous membranes. EYES: The sclera were anicteric and conjunctiva were pink and moist. Extraocular mov ements were intact and pupils were equal round and reactive to light. Eyelids were unremarkable. PULMONARY: Unlabored respirations. Good breath sounds bilaterally. No audible rales rhonchi or wheezing was noted. CARDIOVASCULAR: There is a regular rate and rhythm without any murmurs gallops or rubs. ABDOMEN: Soft and nontender with normal bowel sounds. SKIN: Skin is clear with no lesions or rashes and otherwise unremarkable. NEUROLOGIC: Patient is alert and oriented x3. Cranial nerves II through XII are grossly intact. Motor and sensory are also intact. Normal speech, volume and content. Symmetrical smile. MUSCULOSKELETAL: Normal extremities with adequate strength and full range of motion. 2+ edema bilaterally LYMPHATICS: No significant lymphadenopathy is noted PSYCHIATRIC: Normal psychiatric evaluation. Limitations: no limitations Course Vital Signs 10/16/18 10/16/18 10/16/18 11:34 14:46 15:05 Temperature 97.6 F Pulse Rate 116 H 95 97 Respiratory 18 16 16 Rate Blood Pressure 103/72 133/81 136/73 O2 Sat by Pulse 97 97 98 Oximetry Medical Decision Making - Medical Decision Making I spoke with Dr. Woody nurse practitioner and she indicated that he did want the patient admitted. - Lab Data Result diagrams: 10/16/18 13:15 10/16/18 13:15 Lab Results 10/16/18 10/16/18 10/16/18 Range/Units 13:15 13:15 15:24 WBC 9.7 (3.8-10.6) k/uL RBC 3.40 L (3.80-5.40) m/uL Hgb 11.2 L (11.4-16.0) gm/dL Hct 33.0 L (34.0-46.0) % MCV 97.1 (80.0-100.0) fL MCH 32.9 (25.0-35.0) pg MCHC 33.9 (31.0-37.0) g/dL RDW 20.6 H (11.5-15.5) % Plt Count 185 (150-450) k/uL Neutrophils % 86 % Lymphocytes % 6 % Monocytes % 6 % Eosinophils % 0 % Basophils % 0 % Neutrophils # 8.3 H (1.3-7.7) k/uL Lymphocytes # 0.6 L (1.0-4.8) k/uL Monocytes # 0.6 (0-1.0) k/uL Eosinophils # 0.0 (0-0.7) k/uL Basophils # 0.0 (0-0.2) k/uL Anisocytosis Moderate Macrocytosis Slight Sodium 135 L (137-145) mmol/L Potassium 3.8 (3.5-5.1) mmol/L Chloride 105 (98-107) mmol/L Carbon Dioxide 21 L (22-30) mmol/L Anion Gap 9 mmol/L BUN 46 H (7-17) mg/dL Creatinine 1.92 H (0.52-1.04) mg/dL Est GFR (CKD-EPI)AfAm 31 (>60 ml/min/1.73 sqM) Est GFR (CKD-EPI)NonAf 27 (>60 ml/min/1.73 sqM) Glucose 80 (74-99) mg/dL Calcium 7.1 L (8.4-10.2) mg/dL Total Bilirubin 0.5 (0.2-1.3) mg/dL AST 13 L (14-36) U/L ALT 19 (9-52) U/L Alkaline Phosphatase 164 H (38-126) U/L Total Protein 4.8 L (6.3-8.2) g/dL Albumin 2.3 L (3.5-5.0) g/dL Amylase 50 (30-110) U/L Lipase 64 (23-300) U/L Urine Color Yellow Urine Appearance Clear (Clear) Urine pH 5.5 (5.0-8.0) Ur Specific [place] 1.023 (1.001-1.035) Urine Protein 1+ H (Negative) Urine Glucose (UA) Negative (Negative) Urine Ketones Negative (Negative) Urine Blood Negative (Negative) Urine Nitrite Negative (Negative) Urine Bilirubin Negative (Negative) Urine Urobilinogen <2.0 (<2.0) mg/dL Ur Leukocyte Esterase Negative (Negative) Urine RBC <1 (0-5) /hpf Urine WBC 1 (0-5) /hpf Ur Squamous Epith Cells <1 (0-4) /hpf Amorphous Sediment Rare H (None) /hpf Hyaline Casts 11 H (0-2) /lpf Urine Mucus Rare H (None) /hpf Disposition Clinical Impression: Chronic abdominal pain, Dysphagia Disposition: ADMITTED IP TO THIS HOSP Referrals: Humble Woody MD [Primary Care Provider] - 1-2 days Time of Disposition: 16:06
[2018-10-16 13:42] LABS: Anisocytosis Moderate; Basophils % (A) 0 %; Eosinophils % (A) 0 %; HGB 11.2 gm/dL (11.4-16.0); Lymphocytes # (A) 0.6 k/uL (1.0-4.8); Lymphocytes % (A) 6 %; MCH 32.9 pg (25.0-35.0); MCHC 33.9 g/dL (31.0-37.0); MCV 97.1 fL (80.0-100.0); Macrocytosis Slight; Monocytes # (A) 0.6 k/uL (0-1.0); Monocytes % (A) 6 %; Neutrophils # (A) 8.3 k/uL (1.3-7.7); Neutrophils % (A) 86 %; Platelet Count 185 k/uL (150-450); RDW 20.6 % (11.5-15.5); WBC 9.7 k/uL (3.8-10.6)
[2018-10-16 13:53] LABS: Albumin 2.3 g/dL (3.5-5.0); Calcium 7.1 mg/dL (8.4-10.2); Potassium 3.8 mmol/L (3.5-5.1); Total Bilirubin 0.5 mg/dL (0.2-1.3); Total Protein 4.8 g/dL (6.3-8.2)
[2018-10-16 15:35] LABS: Amorphous Sediment,Urine Rare /hpf; Appearance,Urine Clear (Clear); Bilirubin,Urine Negative (Negative); Blood,Urine Negative (Negative); Color,Urine Yellow; Glucose,Urine (UA) Negative (Negative); Hyaline Casts,Urine 11 /lpf (0-2); Ketones,Urine Negative (Negative); Leukocyte Esterase,Urine Negative (Negative); Mucus,Urine Rare /hpf; Nitrite,Urine Negative (Negative); PH, Urine 5.5 (5.0-8.0); Protein,Urine 1+ (Negative); RBC,Urine <1 /hpf (0-5); Specific Gravity,Urine 1.023 (1.001-1.035); Squamous Epithelial Cell,Urine <1 /hpf (0-4); Urobilinogen,Urine <2.0 mg/dL (<2.0); WBC,Urine 1 /hpf (0-5)
[2018-10-16] MEDS ORDERED: SODIUM CHLORIDE 0.9% 1,000 ML IV ONE (16:13)
[2018-10-16] MEDS ORDERED: PROCHLORPERAZINE 10 MG TAB PO PRN (18:23)
[2018-10-16] MEDS ORDERED: SULFAMETHOX-TMP 800-160MG 1 EACH TAB PO SCH (18:30)
--- NOTE | 2018-10-16 18:31 | P.HPIM ---
History of Present Illness Patient is a 68-year-old female with a history of poorly differentiated malignant neuroendocrine tumor diagnosed in 2011 currently on Sandostatin and completed chemotherapy with temodar weeks ago, chronic kidney disease, and chronic pain who presented to the ER with complaints of a 2 week history of difficulty swallowing with both solids and liquids, she reports that she feels like food gets stuck, she also reports pyrosis symptoms and nausea and has chronic diarrhea. She states that her appetite is still there. She denies any worsening abdominal pain, but reports lower extremity swelling appears to be chronic. The patient is followed by Dr. Woody in oncology clinic who wanted the patient admitted Admission labs sodium 135 serum potassium 3.8, creatinine 1.92, white count 9.7, hemoglobin 11.2 Review of Systems The pertinent positives per HPI all other review of systems otherwise negative Past Medical History Past Medical History: Cancer, Deep Vein Thrombosis (DVT), GERD/Reflux, GI Bleed Additional Past Medical History / Comment(s): neuroendocrine tumor, renal insufficency, anemia, diverticulosis, insomnia History of Any Multi-Drug Resistant Organisms: None Reported Past Surgical History: Orthopedic Surgery Additional Past Surgical History / Comment(s): right leg broken and surgery times 2 Past Anesthesia/Blood Transfusion Reactions: No Reported Reaction Past Psychological History: Depression Smoking Status: Current every day smoker Past Alcohol Use History: None Reported Past Drug Use History: None Reported - Past Family History Mother Family Medical History: CVA/TIA Additional Family Medical History / Comment(s): blood clot Medications and Allergies Home Medications Medication Instructions Recorded Confirmed Type Calcitriol 0.5 mcg PO MOWEFR 07/19/18 10/16/18 History Magnesium Oxide [Mag-Ox] 400 mg PO DAILY 07/19/18 10/16/18 History fentaNYL 75MCG/HR PATCH [Duragesic 1 patch TRANSDERM Q72H 07/19/18 10/16/18 History 75MCG/HR] Ergocalciferol (Vitamin D2) 50,000 unit PO WE 08/06/18 10/16/18 History [Vitamin D2] Ferrous Sulfate [Iron (65 MG 325 mg PO BID 08/06/18 10/16/18 History Elemental)] Calcium Carbonate 500 mg PO DAILY 10/15/18 10/16/18 History Esomeprazole Magnesium [NexIUM] 40 mg PO DAILY 10/15/18 10/16/18 History Furosemide [Lasix] 20 mg PO DAILY 10/15/18 10/16/18 History HYDROcodone/APAP 7.5-325MG [[place] 1 tab PO Q4H PRN 10/15/18 10/16/18 History 7.5-325] Loperamide [Imodium] 2 mg PO QID 10/15/18 10/16/18 History Metoclopramide HCl [Reglan] 10 mg PO AC-TID 10/15/18 10/16/18 History Sodium Bicarbonate 650 mg PO BID 10/15/18 10/16/18 History Zolpidem Tartrate [Ambien] 10 mg PO HS 10/15/18 10/16/18 History Capecitabine [Xeloda] 500 mg PO BID 10/16/18 10/16/18 History Prochlorperazine [Compazine] 10 mg PO TID PRN 10/16/18 10/16/18 History Sulfamethox-Tmp 800-160Mg [Bactrim 1 tab PO MOWEFR 10/16/18 10/16/18 History DS 800-160 mg] Temozolomide [Temodar] 250 mg PO DIRECTED 10/16/18 10/16/18 History Allergies Allergy/AdvReac Type Severity Reaction Status Date / Time No Known Allergies Allergy Verified 10/16/18 11:52 Physical Exam Vitals: Vital Signs Temp Pulse Resp BP Pulse Ox 10/16/18 17:05 76 16 122/70 99 10/16/18 15:05 97 16 136/73 98 10/16/18 14:46 95 16 133/81 97 10/16/18 11:34 97.6 F 116 H 18 103/72 97 Intake and Output 10/16/18 10/16/18 10/16/18 06:59 14:59 22:59 Other: Weight 47.627 kg Constitutional: No acute distress, conversant, cachectic Eyes: Anicteric sclerae, moist conjunctiva, no lid-lag, PERRLA ENMT: NC/AT,Oropharynx clear, no erythema, exudates Neck:Supple, FROM, no masses, or JVD, No carotid bruits; No thyromegaly Lungs: Clear to auscultation, Clear to percussion, Normal respiratory effort, no accessory muscle use Cardiovascular: Heart regular in rate and rhythm, No murmurs, gallops, or rubs +3 bilateral lower extremity peripheral edema Abdominal: Soft Nontender, mildly distended, no guarding, no rebound or rigidity, Normoactive bowel sounds No hepatomegaly, No splenomegaly, No palpable mass No abdominal wall hernia noted Skin: Normal temperature, tone, texture, turgor, No induration No subcutaneous nodules, No rash, lesions, No ulcers Extremities:No digital cyanosis No clubbing, Pedal pulses intact and symmetrical Radial pulses intact and symmetrical Normal gait and station, No calf tenderness Psychiatric: Alert and oriented to person, place and time, Appropriate affect Intact judgement Neuro: Muscles Strength 5/5 in all 4 extremities, Sensation to light touch grossly present throughout, Cranial nerves II-XII grossly intact. No focal sensory deficits Results CBC & Chem 7: 10/16/18 13:15 10/16/18 13:15 Labs: Abnormal Lab Results - Last 24 Hours (Table) 10/16/18 10/16/18 10/16/18 Range/Units 13:15 13:15 15:24 RBC 3.40 L (3.80-5.40) m/uL Hgb 11.2 L (11.4-16.0) gm/dL Hct 33.0 L (34.0-46.0) % RDW 20.6 H (11.5-15.5) % Neutrophils # 8.3 H (1.3-7.7) k/uL Lymphocytes # 0.6 L (1.0-4.8) k/uL Sodium 135 L (137-145) mmol/L Carbon Dioxide 21 L (22-30) mmol/L BUN 46 H (7-17) mg/dL Creatinine 1.92 H (0.52-1.04) mg/dL Calcium 7.1 L (8.4-10.2) mg/dL AST 13 L (14-36) U/L Alkaline Phosphatase 164 H (38-126) U/L Total Protein 4.8 L (6.3-8.2) g/dL Albumin 2.3 L (3.5-5.0) g/dL Urine Protein 1+ H (Negative) Amorphous Sediment Rare H (None) /hpf Hyaline Casts 11 H (0-2) /lpf Urine Mucus Rare H (None) /hpf Assessment and Plan (1) Dysphagia Current Visit: Yes Status: Acute Code(s): R13.10 - DYSPHAGIA, UNSPECIFIED SNOMED Code(s): 93440128 (2) Protein-energy malnutrition Current Visit: Yes Status: Acute Code(s): E46 - UNSPECIFIED PROTEIN-CALORIE MALNUTRITION SNOMED Code(s): 860932553 (3) Neuroendocrine carcinoma metastatic to multiple sites Current Visit: Yes Status: Acute Code(s): C7A.8 - OTHER MALIGNANT NEUROENDOCRINE TUMORS; C7B.8 - OTHER SECONDARY NEUROENDOCRINE TUMORS SNOMED Code(s): 065312990 (4) Chronic kidney disease, stage IV (severe) Current Visit: Yes Status: Acute Code(s): N18.4 - CHRONIC KIDNEY DISEASE, STAGE 4 (SEVERE) SNOMED Code(s): 374517822 (5) GERD (gastroesophageal reflux disease) Current Visit: Yes Status: Acute Code(s): K21.9 - GASTRO-ESOPHAGEAL REFLUX DISEASE WITHOUT ESOPHAGITIS SNOMED Code(s): 879934346 (6) Chronic pain Current Visit: Yes Status: Acute Code(s): G89.29 - OTHER CHRONIC PAIN SNOMED Code(s): 82898522 Plan: The patient is admitted anticipate return to midnight stay after presented with dysphasia in a cachectic emaciated patient with malignant neuroendocrine tumor metastatic to multiple sites and severe protein energy malnutrition. Patient will have a modified barium swallow with consult to speech and dietary, continue diet with ensure 3 times a day with meals. We'll continue her home medications. We'll also consult also follow-up for further recommendations. Continue to follow her clinical course CODE STATUS: DO NOT RESUSCITATE and DO NOT INTUBATE Discussed at of care with: Patient and her Anticipated discharge: 1-[address]: Home Prophylaxis: PPI therapy and SCDs
[2018-10-16] MEDS: HYDROcodone/APAP 7.5-325MG 1 EACH TAB PO PRN ×2 (19:13→23:10)
[2018-10-16] MEDS: CALCITRIOL 0.25 MCG CAP PO SCH (19:16)
[2018-10-16] MEDS: HYDROmorphone 0.5 MG/0.5 ML SYRINGE IVP PRN (19:38)
[2018-10-16] MEDS: NICOTINE 21MG/24HR PATCH TRANSDERM SCH (19:40)
[2018-10-16] MEDS: CAPECITABINE 500 MG PO SCH (21:36)
[2018-10-16] MEDS: LOPERAMIDE 2 MG CAP PO SCH (21:44)
[2018-10-16] MEDS: FERROUS SULFATE 325 MG TAB PO SCH (21:44)
[2018-10-16] MEDS: SODIUM BICARBONATE TAB 650 MG TAB PO SCH (21:44)
[2018-10-16] MEDS: HEPARIN SODIUM,PORCINE 5,000 UNIT/ML 1 ML VIAL SQ SCH (21:44)
[2018-10-16] MEDS: ZOLPIDEM 10 MG TAB PO SCH (21:54)
[2018-10-17] MEDS: HYDROmorphone 0.5 MG/0.5 ML SYRINGE IVP PRN ×7 (01:57→23:35)
[2018-10-17] MEDS: HYDROcodone/APAP 7.5-325MG 1 EACH TAB PO PRN ×5 (03:52→20:39)
[2018-10-17] MEDS: CAPECITABINE 500 MG PO SCH ×2 (08:03→20:36)
[2018-10-17] MEDS: LOPERAMIDE 2 MG CAP PO SCH ×4 (08:12→20:40)
[2018-10-17] MEDS: FUROSEMIDE 20 MG TAB PO SCH (08:13)
[2018-10-17] MEDS: METOCLOPRAMIDE 10 MG TAB PO SCH ×3 (08:13→17:29)
[2018-10-17] MEDS: SODIUM BICARBONATE TAB 650 MG TAB PO SCH ×2 (08:13→20:39)
[2018-10-17] MEDS: MAGNESIUM OXIDE 400 MG TAB PO SCH (08:13)
[2018-10-17] MEDS: FERROUS SULFATE 325 MG TAB PO SCH ×2 (08:13→20:40)
[2018-10-17] MEDS: HEPARIN SODIUM,PORCINE 5,000 UNIT/ML 1 ML VIAL SQ SCH ×2 (08:14→20:40)
[2018-10-17] MEDS: NICOTINE 21MG/24HR PATCH TRANSDERM SCH (08:14)
[2018-10-17] MEDS: CALCIUM CARBONATE 500 MG CHEWABLE PO SCH (08:14)
[2018-10-17] MEDS: PANTOPRAZOLE 40 MG TABLET PO SCH (08:14)
--- NOTE | 2018-10-17 10:29 | P.CONS ---
History of Present Illness - Reason for Consult Consult date: 10/17/18 on treatment for carcinoid Requesting physician: Harshil Westbrook - Chief Complaint odynophagia, anorexia - History of Present Illness Myrna is a very pleasant 68-year-old female patient of Dr. Woody who has been treated for neuroendocrine tumor with a combination of Sandostatin and Afinitor for many years. Patient has chronic diarrhea as well as chronic abdominal pain requiring narcotics including fentanyl and when necessary Traer. All of her follow-ups and imaging over the years (done at [facility]) showed stable disease, she has a history of DVT treated with anticoagulation, followed by a GI bleed and discontinuation of anticoagulation, no recurrence. Overall she has been active, she has had femur fracture 2. In July 2018 patient started experiencing progressive symptoms including increasing abdominal pain, weakness, found to have progressive renal insufficiency. CT scan 07/28/18 showed stable disease in the mesentery. In September she had progressive bilateral lower extremity edema, increased abdominal pain, and now shortness of breath. PET scan 09/28/18 showed diffuse metastatic disease. She was started on single agent Xeloda without any difficulties. She was exhibiting symptoms concerning for depression she was started on an SN MRI. 2 weeks later Temodar was added to the cycle. Patient at this time is actually completed 14 days of Xeloda and 5 days of Temodar. 10/12/18-Patient was in office for acute visit, c/o significant odynophagia, been going on for about 4-5 days, affecting her ability to eat and drink, mild oral irritation, no other aggravating symptoms nothing alleviated the pain, her abd pain was controlled with current analgesic regimen at that time. Pt was treated with hydration and prescribed antifungal elixir and was to report back persistent or progressive symptoms. She returned to office 10/16/18 with progressive weakness, today. Over past two weeks unable to swallow, abdominal pain is not controlled on normal regimen, and BLE edema is worsening. She was not able to stand for weight, ongoing inability to swallow, abd pain no longer controlled. She has been admitted for dehydration, acute renal failure, intractable pain, odynophagia. When seen today patient has similar complaints, the pain medication regimen is improved, she is able to get some rest. Denies fevers, cough, difficulty breathing, mild nausea, no vomiting, dysuria, hematuria, hematochezia, melena, unusual diarrhea, swelling in the lower extremities is progressive, he cannot ambulate independently, she is very weak. Review of Systems 14 point ROS is negative except as stated in HPI Past Medical History Past Medical History: Cancer, Deep Vein Thrombosis (DVT), GERD/Reflux, GI Bleed Additional Past Medical History / Comment(s): neuroendocrine tumor, renal insufficency, anemia, diverticulosis, insomnia History of Any Multi-Drug Resistant Organisms: None Reported Past Surgical History: Orthopedic Surgery Additional Past Surgical History / Comment(s): right leg broken and surgery times 2 Past Anesthesia/Blood Transfusion Reactions: No Reported Reaction Past Psychological History: Depression Smoking Status: Current every day smoker Past Alcohol Use History: None Reported Past Drug Use History: None Reported - Past Family History Mother Family Medical History: CVA/TIA Additional Family Medical History / Comment(s): blood clot Medications and Allergies Home Medications Medication Instructions Recorded Confirmed Type Calcitriol 0.5 mcg PO MOWEFR 07/19/18 10/16/18 History Magnesium Oxide [Mag-Ox] 400 mg PO DAILY 07/19/18 10/16/18 History fentaNYL 75MCG/HR PATCH [Duragesic 1 patch TRANSDERM Q72H 07/19/18 10/16/18 History 75MCG/HR] Ergocalciferol (Vitamin D2) 50,000 unit PO WE 08/06/18 10/16/18 History [Vitamin D2] Ferrous Sulfate [Iron (65 MG 325 mg PO BID 08/06/18 10/16/18 History Elemental)] Calcium Carbonate 500 mg PO DAILY 10/15/18 10/16/18 History Esomeprazole Magnesium [NexIUM] 40 mg PO DAILY 10/15/18 10/16/18 History Furosemide [Lasix] 20 mg PO DAILY 10/15/18 10/16/18 History HYDROcodone/APAP 7.5-325MG [Traer 1 tab PO Q4H PRN 10/15/18 10/16/18 History 7.5-325] Loperamide [Imodium] 2 mg PO QID 10/15/18 10/16/18 History Metoclopramide HCl [Reglan] 10 mg PO AC-TID 10/15/18 10/16/18 History Sodium Bicarbonate 650 mg PO BID 10/15/18 10/16/18 History Zolpidem Tartrate [Ambien] 10 mg PO HS 10/15/18 10/16/18 History Capecitabine [Xeloda] 500 mg PO BID 10/16/18 10/16/18 History Prochlorperazine [Compazine] 10 mg PO TID PRN 10/16/18 10/16/18 History Sulfamethox-Tmp 800-160Mg [Bactrim 1 tab PO MOWEFR 10/16/18 10/16/18 History DS 800-160 mg] Temozolomide [Temodar] 250 mg PO DIRECTED 10/16/18 10/16/18 History Allergies Allergy/AdvReac Type Severity Reaction Status Date / Time No Known Allergies Allergy Verified 10/16/18 11:52 Physical Exam Vitals: Vital Signs Temp Pulse Pulse Pulse Resp BP BP 10/17/18 06:13 97.4 F L 99 18 134/65 10/16/18 21:12 97.4 F L 89 16 128/83 10/16/18 17:05 76 16 122/70 10/16/18 16:24 98 F 17 10/16/18 15:05 97 16 136/73 10/16/18 14:46 95 16 133/81 10/16/18 11:34 97.6 F 116 H 18 103/72 Pulse Ox 10/17/18 06:13 95 10/16/18 21:12 97 10/16/18 17:05 99 10/16/18 16:24 100 10/16/18 15:05 98 10/16/18 14:46 97 10/16/18 11:34 97 Intake and Output 10/16/18 10/17/18 10/17/18 22:59 06:59 14:59 Intake Total 350 800 Balance 350 800 Intake: Intake, IV Titration 350 800 Amount Sodium Chloride 0.9% 1, 350 800 000 ml @ 100 mls/hr IV . Q10H ONE Rx#:[id number] Other: Voiding Method Bedpan Bedpan # Voids 1 - Constitutional rail, cachectic General appearance: cooperative, no acute distress, thin - EENT Eyes: anicteric sclerae, EOMI, poor dentition ENT: hearing grossly normal, pharyngeal erythema - Neck Neck: no lymphadenopathy - Respiratory Respiratory: bilateral: diminished, wheezing (few scattered) - Cardiovascular Rhythm: regular Heart sounds: normal: S1, S2 Abnormal Heart Sounds: no systolic murmur, no diastolic murmur, no rub, no S3 Gallop, no S4 Gallop, no click, no other leg Peripheral Edema: bilateral: 3+, Pitting - Gastrointestinal venous prominence of abd General gastrointestinal: distended, normal bowel sounds - Integumentary Integumentary: normal - Neurologic Neurologic: CNII-XII intact - Musculoskeletal Musculoskeletal: generalized weakness - Psychiatric Psychiatric: A&O x's 3, appropriate affect, intact judgment & insight Results CBC & Chem 7: 10/16/18 13:15 10/16/18 13:15 Labs: Abnormal Lab Results - Last 24 Hours (Table) 10/16/18 10/16/18 10/16/18 Range/Units 13:15 13:15 15:24 RBC 3.40 L (3.80-5.40) m/uL Hgb 11.2 L (11.4-16.0) gm/dL Hct 33.0 L (34.0-46.0) % RDW 20.6 H (11.5-15.5) % Neutrophils # 8.3 H (1.3-7.7) k/uL Lymphocytes # 0.6 L (1.0-4.8) k/uL Sodium 135 L (137-145) mmol/L Carbon Dioxide 21 L (22-30) mmol/L BUN 46 H (7-17) mg/dL Creatinine 1.92 H (0.52-1.04) mg/dL Calcium 7.1 L (8.4-10.2) mg/dL AST 13 L (14-36) U/L Alkaline Phosphatase 164 H (38-126) U/L Total Protein 4.8 L (6.3-8.2) g/dL Albumin 2.3 L (3.5-5.0) g/dL Urine Protein 1+ H (Negative) Amorphous Sediment Rare H (None) /hpf Hyaline Casts 11 H (0-2) /lpf Urine Mucus Rare H (None) /hpf Assessment and Plan (1) Odynophagia Narrative/Plan: CT with rest of the neck and chest has been ordered for evaluation. May need ENT consult. Continue pain medications, frequency adjusted for patient comfort Barium swallow ordered by Attending, pending results Close monitoring for narcotic-induced constipation, patient has chronic diarrhea Current Visit: Yes Status: Acute Priority: High Code(s): R13.10 - DYSPHAGIA, UNSPECIFIED SNOMED Code(s): 25842560 (2) Neuroendocrine carcinoma metastatic to multiple sites Narrative/Plan: Status post 14 days of Xeloda and 5 days of Temodar, cycle 1. Overall, patient tolerated the treatment itself rather well with only minor side effects. Unable to anticipate impact on malignancy at this time, to early in treatment. After review of office chart, may consult GI for EGD if felt it could yield purposeful information Current Visit: Yes Status: Chronic Priority: High Code(s): C7A.8 - OTHER MALIGNANT NEUROENDOCRINE TUMORS; C7B.8 - OTHER SECONDARY NEUROENDOCRINE TUMORS SNOMED Code(s): 562185039 (3) Protein-energy malnutrition Narrative/Plan: Patient is chronically thin/mildly malnourished. This is exacerbated by patient's odynophagia causing decreased oral intake. Supplements have been ordered. Patient had low potassium in office now it is low normal. Due to poor oral intake IV fluids changed to D5 0.9 with 20KCL Current Visit: Yes Status: Chronic Priority: High Code(s): E46 - UNSPECI FIED PROTEIN-CALORIE MALNUTRITION SNOMED Code(s): 593702626 (4) Abdominal pain Narrative/Plan: Chronic with recent exacerbation. Pain medications adjusted for patient comfort. We'll continue to follow and adjust pain medications as needed. Current Visit: Yes Status: Chronic Priority: Medium Code(s): R10.9 - UNSPECIFIED ABDOMINAL PAIN SNOMED Code(s): 92163935 Plan: Doctor attests: I performed the history and physical examination of this patient, developed impression and plan of care, discussed with dictator. I agree with dictators note, documented as a scribe.
--- NOTE | 2018-10-17 13:19 | P.PN ---
Subjective Progress Note Date: 10/17/18 the patient seen and examined follow-up, reports that her pain is adequately controlled still complain of difficulty swallowing mostly with pain. The patient has been seen by speech therapy scheduled to have her modified barium swallow done later today Objective - Vital Signs Vital signs: Vital Signs Temp 97.6 F 10/17/18 11:44 Pulse 99 10/17/18 11:44 Resp 17 10/17/18 11:44 BP 147/81 10/17/18 11:44 Pulse Ox 95 10/17/18 11:44 Intake & Output 10/16/18 10/17/18 10/17/18 18:59 06:59 18:59 Intake Total 1150 Balance 1150 Weight 47.627 kg 47.627 kg Intake: Intake, IV Titration 1150 Amount Sodium Chloride 0.9% 1, 1150 000 ml @ 100 mls/hr IV . Q10H ONE Rx#:[id number] Other: Voiding Method Bedpan Bedpan # Voids 1 - Exam Constitutional: No acute distress, conversant, cachectic Eyes: Anicteric sclerae, moist conjunctiva, no lid-lag, PERRLA ENMT: NC/AT,Oropharynx clear, no erythema, exudates Neck:Supple, FROM, no masses, or JVD, No carotid bruits; No thyromegaly Lungs: Clear to auscultation, Clear to percussion, Normal respiratory effort, no accessory muscle use Cardiovascular: Heart regular in rate and rhythm, No murmurs, gallops, or rubs +3 bilateral lower extremity peripheral edema Abdominal: Soft Nontender, mildly distended, no guarding, no rebound or rigidity, Normoactive bowel sounds No hepatomegaly, No splenomegaly, No palpable mass No abdominal wall hernia noted Skin: Normal temperature, tone, texture, turgor, No induration No subcutaneous nodules, No rash, lesions, No ulcers Extremities:No digital cyanosis No clubbing, Pedal pulses intact and symmetrical Radial pulses intact and symmetrical Normal gait and station, No calf tenderness Psychiatric: Alert and oriented to person, place and time, Appropriate affect Intact judgement Neuro: Muscles Strength 5/5 in all 4 extremities, Sensation to light touch grossly present throughout, Cranial nerves II-XII grossly intact. No focal sensory deficits - Labs CBC & Chem 7: 10/16/18 13:15 10/16/18 13:15 Labs: Abnormal Lab Results - Last 24 Hours (Table) 10/16/18 10/16/18 10/16/18 Range/Units 13:15 13:15 15:24 RBC 3.40 L (3.80-5.40) m/uL Hgb 11.2 L (11.4-16.0) gm/dL Hct 33.0 L (34.0-46.0) % RDW 20.6 H (11.5-15.5) % Neutrophils # 8.3 H (1.3-7.7) k/uL Lymphocytes # 0.6 L (1.0-4.8) k/uL Sodium 135 L (137-145) mmol/L Carbon Dioxide 21 L (22-30) mmol/L BUN 46 H (7-17) mg/dL Creatinine 1.92 H (0.52-1.04) mg/dL Calcium 7.1 L (8.4-10.2) mg/dL AST 13 L (14-36) U/L Alkaline Phosphatase 164 H (38-126) U/L Total Protein 4.8 L (6.3-8.2) g/dL Albumin 2.3 L (3.5-5.0) g/dL Urine Protein 1+ H (Negative) Amorphous Sediment Rare H (None) /hpf Hyaline Casts 11 H (0-2) /lpf Urine Mucus Rare H (None) /hpf Assessment and Plan (1) Dysphagia Narrative/Plan: * Awaiting speech recommendations modified barium swallow evaluation to be completed today * Continue with dysphagia 1. Pured diet Current Visit: Yes Status: Acute Code(s): R13.10 - DYSPHAGIA, UNSPECIFIED SNOMED Code(s): 70179981 (2) Protein-energy malnutrition Narrative/Plan: * Patient with severe post energy malnutrition from underlying malignancy * Dietitian consulted for further recommendations Current Visit: Yes Status: Chronic Priority: High Code(s): E46 - UNSPECIFIED PROTEIN-CALORIE MALNUTRITION SNOMED Code(s): 067550187 (3) Neuroendocrine carcinoma metastatic to multiple sites Narrative/Plan: * Patient follows with Dr. Reyes * Previously on chemotherapy with Temodar Current Visit: Yes Status: Chronic Priority: High Code(s): C7A.8 - OTHER MALIGNANT NEUROENDOCRINE TUMORS; C7B.8 - OTHER SECONDARY NEUROENDOCRINE TUMORS SNOMED Code(s): 436372522 (4) Chronic kidney disease, stage IV (severe) Current Visit: Yes Status: Acute Code(s): N18.4 - CHRONIC KIDNEY DISEASE, STAGE 4 (SEVERE) SNOMED Code(s): 375791588 (5) GERD (gastroesophageal reflux disease) Narrative/Plan: * Continue ongoing PPI therapy * Current Visit: Yes Status: Chronic Code(s): K21.9 - GASTRO-ESOPHAGEAL REFLUX DISEASE WITHOUT ESOPHAGITIS SNOMED Code(s): 419911538 (6) Chronic pain Narrative/Plan: * Patient continued on her fentanyl patch, [place] Current Visit: Yes Status: Chronic Code(s): G89.29 - OTHER CHRONIC PAIN SNOMED Code(s): 12138334 Plan: * Disposition anticipated discharge 1-2 days * Follow up with speech and dietary recommendations as well as modified barium swallow evaluation
[2018-10-17] MEDS: D5-0.9% NACL WITH KCL 20 MEQ/L 1,000 ML IV SCH ×2 (15:03→20:41)
--- NOTE | 2018-10-17 15:03 | FL ---
EXAMINATION TYPE: FL barium swallow w video DATE OF EXAM: 10/17/2018 MODIFIED SWALLOW / DEGLUTITION STUDY CLINICAL HISTORY: Dysphagia. TECHNIQUE: Deglutition study is performed utilizing thin liquid barium, honey and nectar thick liqui d barium, barium thick applesauce, and barium coated cracker. COMPARISON: None. FINDINGS: 1 minute 48 seconds of fluoroscopy time was utilized. 0 images were provided for interpreta tion. The oral and pharyngeal phases show satisfactory initiation and propagation with all modalities tested. Normal mastication is seen with solid modalities tested. There is no evidence of penetrati on or aspiration with any modality tested. No significant pharyngeal residue was appreciated. IMPRESSION: Normal deglutition study. Please refer to speech therapist notes for further details if necessary.
--- NOTE | 2018-10-17 15:30 | CT ---
EXAMINATION TYPE: CT neck chest without con DATE OF EXAM: 10/17/2018 COMPARISON: CT the chest with contrast dated 11/19/2009 HISTORY: Difficulty swallowing and cough CT DLP: 507.00 mGycm Automated exposure control for dose reduction was used. FINDINGS: Lack of intravenous contrast limits the evaluation for lymph nodes and soft tissue. Visualized portions of the brain appears grossly unremarkable. Visualized paranasal sinuses and masto id air cells are clear. Soft tissues appear grossly symmetric, but extremely limited due to the lack of fat within the neck. There is mild effacement on the left oral pharyngeal space, which is thought to be related to phase o f respiration rather than mass. There are moderate multiloculated bilateral pleural effusions with associated atelectasis. Predominan tly loculations are seen superiorly with normal layering of fluid seen inferiorly at the lung bases. There is partial visualization of large amount of ascites. Moderate emphysema is seen throughout the lungs. Diffuse anasarca. Small nodule in left thyroid gland measuring up to 0.3 cm. Tracheobronchial tree is patent. Air-filled esophagus proximally and in the midportion with fluid-filled esophagus seen in the distal portion. There is a moderate-sized hiatal hernia. Diffuse osteopenia. Healing/healed posterior left lateral rib fractures. Inferior endplate Schmorl's node in the lower thoracic spine. IMPRESSION: LIMITED EXAM DUE TO LACK OF INTRAVENOUS CONTRAST AND SUBCUTANEOUS FAT. MODERATE BILATERAL PLEURAL EFFUSIONS AND ABDOMINAL ASCITES. DIFFUSE ANASARCA. MILD LEFT ORAL PHARYNGEAL SPACE EFFACEMENT THOUGHT TO BE RELATED TO PHASE OF RESPIRATION, BUT MASS WO ULD BE INCLUDED IN THE DIFFERENTIAL. DIRECT VISUALIZATION IS RECOMMENDED. AIR AND FLUID-FILLED ESOPHAGUS WITH MODERATE HIATAL HERNIA. CONSIDER NASOGASTRIC TUBE FOR ASPIRATION RISK. HEALING/HEALED POSTERIOR LATERAL LEFT RIB FRACTURES.
[2018-10-17] MEDS: ZOLPIDEM 10 MG TAB PO SCH (20:41)
[2018-10-18] MEDS: HYDROcodone/APAP 7.5-325MG 1 EACH TAB PO PRN ×5 (00:45→18:31)
[2018-10-18] MEDS: HYDROmorphone 0.5 MG/0.5 ML SYRINGE IVP PRN ×6 (02:19→19:52)
[2018-10-18] MEDS: HEPARIN SODIUM,PORCINE 5,000 UNIT/ML 1 ML VIAL SQ SCH ×2 (08:44→21:22)
[2018-10-18] MEDS: NICOTINE 21MG/24HR PATCH TRANSDERM SCH (08:45)
[2018-10-18] MEDS: MAGNESIUM OXIDE 400 MG TAB PO SCH (08:46)
[2018-10-18] MEDS: FERROUS SULFATE 325 MG TAB PO SCH ×2 (08:47→21:22)
[2018-10-18] MEDS: FUROSEMIDE 20 MG TAB PO SCH (08:47)
[2018-10-18] MEDS: SODIUM BICARBONATE TAB 650 MG TAB PO SCH ×2 (08:47→21:23)
[2018-10-18] MEDS: PANTOPRAZOLE 40 MG TABLET PO SCH (08:47)
[2018-10-18] MEDS: METOCLOPRAMIDE 10 MG TAB PO SCH ×3 (08:48→16:13)
[2018-10-18] MEDS: LOPERAMIDE 2 MG CAP PO SCH ×4 (08:49→21:23)
[2018-10-18] MEDS: CALCIUM CARBONATE 500 MG CHEWABLE PO SCH (08:54)
[2018-10-18] MEDS: CALCITRIOL 0.25 MCG CAP PO SCH (08:55)
[2018-10-18] MEDS: D5-0.9% NACL WITH KCL 20 MEQ/L 1,000 ML IV SCH ×2 (08:55→16:11)
[2018-10-18] MEDS ORDERED: ERGOCALCIFEROL 50,000 UNIT CAP PO SCH (09:00)
[2018-10-18] MEDS ORDERED: SULFAMETHOX-TMP 800-160MG 1 EACH TAB PO SCH (09:00)
[2018-10-18] MEDS: ALPRAZolam 0.25 MG TAB PO PRN ×2 (10:27→18:33)
[2018-10-18] MEDS: CAPECITABINE 500 MG PO SCH ×2 (12:27→21:51)
--- NOTE | 2018-10-18 13:57 | P.PN ---
Subjective Progress Note Date: 10/18/18 the patient seen and examined follow-up, reports that her pain is adequately controlled still complain of difficulty swallowing mostly with pain. Barium swallow shows normal swallow, CT of the neck showing mild left oropharyngeal space effacement. Objective - Vital Signs Vital signs: Vital Signs Temp 97.5 F L 10/18/18 12:08 Pulse 95 10/18/18 12:08 Resp 15 10/18/18 12:08 BP 161/91 10/18/18 12:08 Pulse Ox 91 L 10/18/18 12:08 Intake & Output 10/17/18 10/18/18 10/18/18 18:59 06:59 18:59 Intake Total 800 1260 Balance 800 1260 Weight 47.627 kg 54 kg Intake: Intake, IV Titration 800 900 Amount D5-0.9% NaCl with KCl 20 900 Meq/l 1,000 ml @ 100 mls/ hr IV .Q10H JONATHAN Rx#: [id number] Sodium Chloride 0.9% 1, 800 000 ml @ 100 mls/hr IV . Q10H ONE Rx#:[id number] Oral 360 Other: Voiding Method Bedpan Bedpan Bedpan # Voids 2 1 - Exam Constitutional: No acute distress, conversant, cachectic and emaciated Eyes: Anicteric sclerae, moist conjunctiva, no lid-lag, PERRLA ENMT: Bilateral temporal wasting,Oropharynx clear, no erythema, exudates Neck:Supple, FROM, no masses, or JVD, No carotid bruits; No thyromegaly Lungs: Clear to auscultation, Clear to percussion, Normal respiratory effort, no accessory muscle use Cardiovascular: Heart regular in rate and rhythm, No murmurs, gallops, or rubs +3 bilateral lower extremity peripheral edema Abdominal: Soft Nontender, mildly distended, no guarding, no rebound or rigidity, Normoactive bowel sounds No hepatomegaly, No splenomegaly, No palpable mass No abdominal wall hernia noted Skin: Normal temperature, tone, texture, turgor, No induration No subcutaneous nodules, No rash, lesions, No ulcers Extremities:No digital cyanosis No clubbing, Pedal pulses intact and symmetrical Radial pulses intact and symmetrical Normal gait and station, No calf tenderness Psychiatric: Alert and oriented to person, place and time, Appropriate affect Intact judgement Neuro: Muscles Strength 5/5 in all 4 extremities, Sensation to light touch grossly present throughout, Cranial nerves II-XII grossly intact. No focal sensory deficits - Labs CBC & Chem 7: 10/16/18 13:15 10/16/18 13:15 Assessment and Plan (1) Dysphagia Narrative/Plan: * Barium swallow showing normal swallow * CT of the neck showing mild left oral pharyngeal effacement we'll consult ENT for possible endoscopy * Continue with dysphagia 1. Pured diet Current Visit: Yes Status: Acute Code(s): R13.10 - DYSPHAGIA, UNSPECIFIED SNOMED Code(s): 88255464 (2) Protein-energy malnutrition Narrative/Plan: * Patient with severe post energy malnutrition from underlying malignancy * magic cups high protein snack bid, ensure comp milkshake * Dietitian consulted for further recommendations Current Visit: Yes Status: Chronic Priority: High Code(s): E46 - UNSPECIFIED PROTEIN-CALORIE MALNUTRITION SNOMED Code(s): 056872768 (3) Neuroendocrine carcinoma metastatic to multiple sites Narrative/Plan: * Patient follows with Dr. Reyes * Previously on chemotherapy with Temodar Current Visit: Yes Status: Chronic Priority: High Code(s): C7A.8 - OTHER MALIGNANT NEUROENDOCRINE TUMORS; C7B.8 - OTHER SECONDARY NEUROENDOCRINE TUMORS SNOMED Code(s): 020339447 (4) Chronic kidney disease, stage IV (severe) Current Visit: Yes Status: Acute Code(s): N18.4 - CHRONIC KIDNEY DISEASE, STAGE 4 (SEVERE) SNOMED Code(s): 243122605 (5) GERD (gastroesophageal reflux disease) Narrative/Plan: * Continue ongoing PPI therapy * Current Visit: Yes Status: Chronic Code(s): K21.9 - GASTRO-ESOPHAGEAL REFLUX DISEASE WITHOUT ESOPHAGITIS SNOMED Code(s): 411253745 (6) Chronic pain Narrative/Plan: * Patient continued on her fentanyl patch, [place] Current Visit: Yes Status: Chronic Code(s): G89.29 - OTHER CHRONIC PAIN SNOMED Code(s): 56157855 Plan: * Disposition anticipated discharge 1-2 days * Broached topic of hospice with patient given her overall prognosis, patient has never had discussion with her primary care/ oncologist Dr. Reyes. Patient would like to discuss further with oncology and her . * Follow up with speech and dietary ENT recommendations
--- NOTE | 2018-10-18 16:25 | P.PN ---
Subjective Progress Note Date: 10/18/18 Principal diagnosis: intractable odynophagia, dehydration from poor oral intake In f/u pt states improved pain control with adjustments in frequency of pain meds, the odynophagia is persistent and still impeding her swallowing, CT neck did show a mass. No fever, cough, chest pain, her legs are continuing to be swollen without much change Objective - Vital Signs Vital signs: Vital Signs Temp 97.5 F L 10/18/18 12:08 Pulse 95 10/18/18 12:08 Resp 15 10/18/18 12:08 BP 161/91 10/18/18 12:08 Pulse Ox 91 L 10/18/18 12:08 Intake & Output 10/17/18 10/18/18 10/18/18 18:59 06:59 18:59 Intake Total 800 1260 Balance 800 1260 Weight 47.627 kg 54 kg Intake: Intake, IV Titration 800 900 Amount D5-0.9% NaCl with KCl 20 900 Meq/l 1,000 ml @ 100 mls/ hr IV .Q10H JONATHAN Rx#: [id number] Sodium Chloride 0.9% 1, 800 000 ml @ 100 mls/hr IV . Q10H ONE Rx#:[id number] Oral 360 Other: Voiding Method Bedpan Bedpan Bedpan # Voids 2 1 4 - Constitutional General appearance: Present: cooperative, no acute distress, thin - EENT Eyes: Present: anicteric sclerae, EOMI, poor dentition ENT: Present: hearing grossly normal, pharyngeal erythema - Neck Neck: Present: normal ROM. Absent: lymphadenopathy, other, rigidity, stridor, thyromegaly - Respiratory Respiratory: bilateral: CTA, diminished - Cardiovascular Heart sounds: normal: S1, S2 - Peripheral edema leg Peripheral Edema: bilateral: 3+, Pitting - Gastrointestinal Gastrointestinal Comment(s): firm to palpation, no rigid or painful General gastrointestinal: Present: soft - Neurologic Neurologic: Present: CNII-XII intact - Musculoskeletal Musculoskeletal: Present: generalized weakness - Psychiatric Psychiatric: Present: A&O x's 3, appropriate affect, intact judgment & insight - Labs CBC & Chem 7: 10/16/18 13:15 10/16/18 13:15 - Imaging and Cardiology CT scan - chest: report reviewed CT neck report reviewed Assessment and Plan (1) Odynophagia Narrative/Plan: CT with rest of the neck and chest report reviewed. ENT consult requested for visualization and possible biopsy if something is identified. Continue pain medications, frequency adjusted for patient comfort was successful Barium swallow ordered by Attending, pending results Close monitoring for narcotic-induced constipation, patient has chronic diarrhea Current Visit: Yes Status: Acute Priority: High Code(s): R13.10 - DYSPHAGIA, UNSPECIFIED SNOMED Code(s): 86501572 (2) Neuroendocrine carcinoma metastatic to multiple sites Narrative/Plan: Status post 14 days of Xeloda and 5 days of Temodar, cycle 1. Overall, patient tolerated the treatment itself rather well with only minor side effects. Unable to anticipate impact on malignancy at this time, to early in treatment but, if mass is throat is found to be malignant it could represent failure as odynophagia symptoms started after completing the cycle. Plan is to meet with pt and after ENT eval Current Visit: Yes Status: Chronic Priority: High Code(s): C7A.8 - OTHER MALIGNANT NEUROENDOCRINE TUMORS; C7B.8 - OTHER SECONDARY NEUROENDOCRINE TUMORS SNOMED Code(s): 149872265 (3) Protein-energy malnutrition Narrative/Plan: Patient is chronically thin/mildly malnourished. This is exacerbated by patient's odynophagia causing decreased oral intake. Supplements have been ordered. Patient had low potassium in office now it is low normal. Due to poor oral intake IV fluids changed to D5 0.9 with 20KCL Current Visit: Yes Status: Chronic Priority: High Code(s): E46 - UNSPECIFIED PROTEIN-CALORIE MALNUTRITION SNOMED Code(s): 502537291 (4) Abdominal pain Narrative/Plan: Chronic with recent exacerbation. Pain medications adjusted for patient comfort. Current Visit: Yes Status: Chronic Priority: Medium Code(s): R10.9 - UNSPECIFIED ABDOMINAL PAIN SNOMED Code(s): 41898146 (5) Anxiety about health Narrative/Plan: Xanax ordered PRN Current Visit: Yes Status: Acute Priority: High Code(s): F41.8 - OTHER SPECIFIED ANXIETY DISORDERS SNOMED Code(s): 095691332
[2018-10-18] MEDS: ZOLPIDEM 10 MG TAB PO SCH (21:51)
--- NOTE | 2018-10-19 00:02 | XR ---
EXAM: XR Chest, 1 View CLINICAL HISTORY: ITS.REASON XR Reason: SOB TECHNIQUE: Frontal view of the chest. COMPARISON: No relevant prior studies available. FINDINGS: Lungs: Unremarkable. No consolidation. Pleural space: Bilateral pleural effusions. No pneumothorax. Heart: No pneumomediastinum. Mediastinum: Unremarkable. Bones/joints: No definite fracture. IMPRESSION: Bilateral pleural effusions.
--- NOTE | 2018-10-19 00:13 | P.PN ---
Progress Note - Text Progress Note Date: 10/19/18 Performed by the RN that the patient's respiratory status had worsened and that she was saturating low 90s while on 4 L nasal cannula and was lethargic. The patient was seen and examined by me at the bedside. Patient was lethargic and not answering questions appropriately. Ordered a chest x-ray, which is showing bibasilar infiltrates w/ bilateral pleural effusions. General: Emaciated female in mild-moderate respiratory distress HEENT: NC/AT, anicteric sclerae, PERRLA Cardiovascular: S1/S2 wnl, tachycardic, no murmurs, rubs, or gallops Lungs: Bilateral scattered rhonchi and rales, poor air entry, some accessory muscle use Abdominal: Soft, non-tender, non-distended, no guarding, rebound, or rigidity Skin: Warm, dry Extremities: No edema Psychiatric: Lethargic, oriented only to self Discussed the patient's change in clinical status with her and son (Andrés and Raad Murillo, respectively). The patient's reported that the patient did not wish to be resuscitated or be placed on life support of any kind. He reported that he is aware that the patient has a terminal condition and that she has had a gradual decline. He stated that he wishes for the main priority to be pain control and comfort at this time. He would however like her her to receive antibiotics or any other non-aggressive therapeutic interventions at this time.
[2018-10-19] MEDS ORDERED: FUROSEMIDE 10 MG/ML 4 ML VIAL IV STA (00:14)
[2018-10-19] MEDS: HYDROmorphone 0.5 MG/0.5 ML SYRINGE IVP PRN ×5 (01:08→16:44)
[2018-10-19] MEDS: D5-0.9% NACL WITH KCL 20 MEQ/L 1,000 ML IV SCH (01:23)
[2018-10-19] MEDS: HYDROcodone/APAP 7.5-325MG 1 EACH TAB PO PRN ×3 (02:16→15:31)
[2018-10-19] MEDS: ALPRAZolam 0.25 MG TAB PO PRN ×2 (05:04→12:32)
[2018-10-19 08:04] LABS: Calcium 7.1 mg/dL (8.4-10.2); Total Bilirubin 0.7 mg/dL (0.2-1.3)
[2018-10-19 08:27] LABS: Albumin 2.2 g/dL (3.5-5.0); Magnesium 1.6 mg/dL (1.6-2.3); Phosphorus 3.9 mg/dL (2.5-4.5); Potassium 5.6 mmol/L (3.5-5.1); Total Protein 4.9 g/dL (6.3-8.2)
[2018-10-19] MEDS: LOPERAMIDE 2 MG CAP PO SCH ×3 (08:28→18:10)
[2018-10-19] MEDS: METOCLOPRAMIDE 10 MG TAB PO SCH ×3 (08:29→17:42)
[2018-10-19] MEDS: CALCIUM CARBONATE 500 MG CHEWABLE PO SCH (08:34)
[2018-10-19] MEDS: PANTOPRAZOLE 40 MG TABLET PO SCH (08:34)
[2018-10-19] MEDS: FUROSEMIDE 20 MG TAB PO SCH (08:35)
[2018-10-19] MEDS: HEPARIN SODIUM,PORCINE 5,000 UNIT/ML 1 ML VIAL SQ SCH (08:35)
[2018-10-19] MEDS: CAPECITABINE 500 MG PO SCH (08:35)
[2018-10-19] MEDS: FERROUS SULFATE 325 MG TAB PO SCH (08:35)
[2018-10-19] MEDS: MAGNESIUM OXIDE 400 MG TAB PO SCH (08:36)
[2018-10-19] MEDS: SODIUM BICARBONATE TAB 650 MG TAB PO SCH (08:36)
[2018-10-19] MEDS ORDERED: DEXTROSE 5%-0.9% NACL 1,000 ML IV SCH (08:45)
[2018-10-19] MEDS: NICOTINE 21MG/24HR PATCH TRANSDERM SCH (08:46)
[2018-10-19 09:09] LABS: Anisocytosis Moderate; HCT 35.2 % (34.0-46.0); HGB 11.3 gm/dL (11.4-16.0); MCH 32.5 pg (25.0-35.0); MCHC 32.2 g/dL (31.0-37.0); MCV 100.7 fL (80.0-100.0); Macrocytosis Moderate; Mean Platelet Volume 8.5; Platelet Count 144 k/uL (150-450); RBC 3.49 m/uL (3.80-5.40); RDW 20.6 % (11.5-15.5); WBC 8.4 k/uL (3.8-10.6)
[2018-10-19 11:46] VITALS: BP 138/62; PULSE 118; RESP 18; TEMP 97.5
--- NOTE | 2018-10-19 13:43 | P.PN ---
Subjective Progress Note Date: 10/19/18 Principal diagnosis: Dysphagia Overnight patient's respiratory status had worsened and she was saturating low 90s while on 4 L nasal cannula, she was also lethargic. According to the night doc she was not answering questions appropriately. Ordered a chest x-ray, which showed some fluid overload. She was given one dose of lasix. Currently is more oriented and answering questions appropriately. No sob. No cp. Objective - Vital Signs Vital signs: Vital Signs Temp 97.5 F L 10/19/18 11:45 Pulse 118 H 10/19/18 11:45 Resp 18 10/19/18 11:45 BP 138/62 10/19/18 11:45 Pulse Ox 94 L 10/19/18 11:45 Intake & Output 10/18/18 10/19/18 10/19/18 18:59 06:59 18:59 Intake Total 800 Balance 800 Weight 51.4 kg Intake: Intake, IV Titration 800 Amount D5-0.9% NaCl with KCl 20 800 Meq/l 1,000 ml @ 100 mls/ hr IV .Q10H [facility] Rx#: [id number] Other: Voiding Method Bedpan Bedpan Bedpan # Voids 4 12 # Bowel Movements 3 - Exam Constitutional: No acute distress, conversant, cachectic and emaciated Eyes: Anicteric sclerae, moist conjunctiva, no lid-lag, PERRLA ENMT: Bilateral temporal wasting,Oropharynx clear, no erythema, exudates Neck:Supple, FROM, no masses, or JVD, No carotid bruits; No thyromegaly Lungs: Clear to auscultation, Clear to percussion, Normal respiratory effort, no accessory muscle use Cardiovascular: Heart regular in rate and rhythm, No murmurs, gallops, or rubs +3 bilateral lower extremity peripheral edema Abdominal: Soft Nontender, mildly distended, no guarding, no rebound or rigidity, Normoactive bowel sounds No hepatomegaly, No splenomegaly, No palpa ble mass No abdominal wall hernia noted Skin: Normal temperature, tone, texture, turgor, No induration No subcutaneous nodules, No rash, lesions, No ulcers Extremities:No digital cyanosis No clubbing, Pedal pulses intact and symmetrical Radial pulses intact and symmetrical Normal gait and station, No calf tenderness Psychiatric: Alert and oriented to person, place and time, Appropriate affect In tact judgement Neuro: General weakness. Non focal. - Labs CBC & Chem 7: 10/19/18 08:18 10/19/18 07:24 Labs: Abnormal Lab Results - Last 24 Hours (Table) 10/19/18 10/19/18 Range/Units 07:24 08:18 RBC 3.49 L (3.80-5.40) m/uL Hgb 11.3 L (11.4-16.0) gm/dL MCV 100.7 H (80.0-100.0) fL RDW 20.6 H (11.5-15.5) % Plt Count 144 L (150-450) k/uL Potassium 5.6 H (3.5-5.1) mmol/L Chloride 111 H (98-107) mmol/L Carbon Dioxide 18 L (22-30) mmol/L BUN 39 H (7-17) mg/dL Creatinine 1.61 H (0.52-1.04) mg/dL Calcium 7.1 L (8.4-10.2) mg/dL Alkaline Phosphatase 178 H (38-126) U/L Total Protein 4.9 L (6.3-8.2) g/dL Albumin 2.2 L (3.5-5.0) g/dL Assessment and Plan Plan: (1) Dysphagia * Barium swallow showing normal swallow * CT of the neck showing mild left oral pharyngeal effacement, ENT consult pending * Continue with dysphagia 1. Pured diet (2) Protein-energy malnutrition * Patient with severe post energy malnutrition from underlying malignancy * magic cups high protein snack bid, ensure comp milkshake * Dietitian consulted for further recommendations (3) Neuroendocrine carcinoma metastatic to multiple sites * D/W RHIT onco * Will d/w family hospice options today. (4) Chronic kidney disease, stage IV (severe) with hyperkalemia Follow up K in am (5) GERD (gastroesophageal reflux disease) * Continue ongoing PPI therapy (6) Chronic pain: * Patient continued on her fentanyl patch, [place] * Disposition anticipated discharge 1-2 days
[2018-10-19 15:42] VITALS: BMI 18.3
--- NOTE | 2018-10-19 19:29 | P.PN ---
Subjective Progress Note Date: 10/19/18 Principal diagnosis: intractable odynophagia, dehydration from poor oral intake In f/u today pt states decent pain conrol, odynophagia persists, no fever, vomiting, breathing is comfortable at rest, no other c/o. Family is present for meeting Objective - Vital Signs Vital signs: Vital Signs Temp 97.5 F L 10/19/18 11:45 Pulse 118 H 10/19/18 11:45 Resp 18 10/19/18 11:45 BP 138/62 10/19/18 11:45 Pulse Ox 94 L 10/19/18 11:45 Intake & Output 10/19/18 10/19/18 10/20/18 06:59 18:59 06:59 Intake Total 800 100 Balance 800 100 Weight 51.4 kg Intake: Intake, IV Titration 800 100 Amount D5-0.9% NaCl with KCl 20 800 100 Meq/l 1,000 ml @ 100 mls/ hr IV .Q10H JONATHAN Rx#: [id number] Other: Voiding Method Bedpan Bedpan # Voids 12 # Bowel Movements 3 - Exam This, cachetic, frail, NAD, A&Ox4, respirations are even and unlabored, BBS CTA, no pain with palpation of abdomen, generalized anasarca - Labs CBC & Chem 7: 10/19/18 08:18 10/19/18 07:24 Labs: Abnormal Lab Results - Last 24 Hours (Table) 10/19/18 10/19/18 Range/Units 07:24 08:18 RBC 3.49 L (3.80-5.40) m/uL Hgb 11.3 L (11.4-16.0) gm/dL MCV 100.7 H (80.0-100.0) fL RDW 20.6 H (11.5-15.5) % Plt Count 144 L (150-450) k/uL Potassium 5.6 H (3.5-5.1) mmol/L Chloride 111 H (98-107) mmol/L Carbon Dioxide 18 L (22-30) mmol/L BUN 39 H (7-17) mg/dL Creatinine 1.61 H (0.52-1.04) mg/dL Calcium 7.1 L (8.4-10.2) mg/dL Alkaline Phosphatase 178 H (38-126) U/L Total Protein 4.9 L (6.3-8.2) g/dL Albumin 2.2 L (3.5-5.0) g/dL Assessment and Plan (1) Odynophagia Current Visit: Yes Status: Acute Priority: High Code(s): R13.10 - DYSPHAG [place], UNSPECIFIED SNOMED Code(s): 97272259 (2) Neuroendocrine carcinoma metastatic to multiple sites Current Visit: Yes Status: Chronic Priority: High Code(s): C7A.8 - OTHER MALIGNANT NEUROENDOCRINE TUMORS; C7B.8 - OTHER SECONDARY NEUROENDOCRINE TUMORS SNOMED Code(s): 754656087 (3) Protein-energy malnutrition Current Visit: Yes Status: Chronic Priority: High Code(s): E46 - UNSPECIFIED PROTEIN-CALORIE MALNUTRITION SNOMED Code(s): 304501047 (4) Abdominal pain Current Visit: Yes Status: Chronic Priority: Medium Code(s): R10.9 - UNSPECIFIED ABDOMINAL PAIN SNOMED Code(s): 58735588 (5) Anxiety about health Current Visit: Yes Status: Acute Priority: High Code(s): F41.8 - OTHER SPECIFIED ANXIETY DISORDERS SNOMED Code(s): 055256477 Plan: We reviewed dotatate scan from 09/05, the scan that showed disease progression and led to change in therapy. Unfortunately, there was a rather significant amount of disease present, there was a notable area in the left supraclavicular area. Pt symptoms did not manifest untilafter 1 cycle of treatment which would be more suggestive of lack of response therapy and suspect disease progression. Pt tumor type lacks successful treatment options after 1st line. We discussed risk vs benefit of continuing current regimen and we discussed the potential of causing more harm. Pt and family are accepting of hospice. They are waiting for a son in the to arrive-late tonight is anticipated arrival. Case was discussed with [employer] who will contact hospice and have them talk with pt and family a little later today to address needs and get care set up-pt and family need a little bit of time to process all that has been discussed. All questions answered to pt and family satisfaction Time with Patient: Greater than 30 (>35 min spent, >50% counseling and c oordinating care)
--- NOTE | 2018-10-20 09:04 | P.DS ---
Providers Date of admission: 10/16/18 16:13 Expected date of discharge: 10/19/18 Attending physician: Brandt Lux MD Consults: 10/16/18 16:13 Consult Physician Urgent Consulting Provider: Humble Woody Consult Reason/Comments: Dysphagia, endocrine neoplasm Do you want consulting provider notified?: Yes 10/18/18 10:05 Consult Physician Urgent Consulting Provider: Amaury Jamison Consult Reason/Comments: throat pain possible mass Do you want consulting provider notified?: Yes Primary care physician: Humble [facility] Hospital Course: 68-year-old female with a history of poorly differentiated malignant neuroendocrine tumor diagnosed in 2011 currently on Sandostatin and completed chemotherapy with temodar weeks ago, chronic kidney disease, and chronic pain who presented to the ER with complaints of a 2 week history of difficulty swallowing with both solids and liquids, she reports that she feels like food gets stuck, she also reports pyrosis symptoms and nausea and has chronic diarrhea. She states that her appetite is still there. She denies any worsening abdominal pain, but reports lower extremity swelling that appears to be chronic. The patient is followed by Dr. Woody in oncology clinic who wanted the patient admitted. Admission labs sodium 135 serum potassium 3.8, creatinine 1.92, white count 9.7, hemoglobin 11.2. She was admitted, had a barium swallow study and that was normal. She subsequently had computed tomography scan of the neck which showed mild left oral pharyngeal effacement, ENT consult was recommended. However oncology held a family meeting with patient's family and because of refractory disease it was decided to keep the patient comfortable and transition to hospice care for comfort. Patient will be discharged to inpatient hospice. Patient Condition at Discharge: Undetermined Plan - Discharge Summary Discharge Rx Participant: Yes New Discharge Prescriptions: No Action fentaNYL 75MCG/HR PATCH [Duragesic 75MCG/HR] 1 patch TRANSDERM Q72H Calcitriol 0.5 mcg PO MOWEFR Magnesium Oxide [Mag-Ox] 400 mg PO DAILY Ergocalciferol (Vitamin D2) [Vitamin D2] 50,000 unit PO WE Ferrous Sulfate [Iron (65 MG Elemental)] 325 mg PO BID Loperamide [Imodium] 2 mg PO QID Sodium Bicarbonate 650 mg PO BID Metoclopramide HCl [Reglan] 10 mg PO AC-TID HYDROcodone/APAP 7.5-325MG [[place] 7.5-325] 1 tab PO Q4H PRN PRN Reason: Pain Furosemide [Lasix] 20 mg PO DAILY Esomeprazole Magnesium [NexIUM] 40 mg PO DAILY Calcium Carbonate 500 mg PO DAILY Zolpidem Tartrate [Ambien] 10 mg PO HS Sulfamethox-Tmp 800-160Mg [Bactrim DS 800-160 mg] 1 tab PO MOWEFR Prochlorperazine [Compazine] 10 mg PO TID PRN PRN Reason: Nausea Temozolomide [Temodar] 250 mg PO DIRECTED Capecitabine [Xeloda] 500 mg PO BID Discharge Medication List Calcitriol 0.5 mcg PO MOWEFR 07/19/18 [History] Magnesium Oxide [Mag-Ox] 400 mg PO DAILY 07/19/18 [History] fentaNYL 75MCG/HR PATCH [Duragesic 75MCG/HR] 1 patch TRANSDERM Q72H 07/19/18 [History] Ergocalciferol (Vitamin D2) [Vitamin D2] 50,000 unit PO WE 08/06/18 [History] Ferrous Sulfate [Iron (65 MG Elemental)] 325 mg PO BID 08/06/18 [History] Calcium Carbonate 500 mg PO DAILY 10/15/18 [History] Esomeprazole Magnesium [NexIUM] 40 mg PO DAILY 10/15/18 [History] Furosemide [Lasix] 20 mg PO DAILY 10/15/18 [History] HYDROcodone/APAP 7.5-325MG [[place] 7.5-325] 1 tab PO Q4H PRN 10/15/18 [History] Loperamide [Imodium] 2 mg PO QID 10/15/18 [History] Metoclopramide HCl [Reglan] 10 mg PO AC-TID 10/15/18 [History] Sodium Bicarbonate 650 mg PO BID 10/15/18 [History] Zolpidem Tartrate [Ambien] 10 mg PO HS 10/15/18 [History] Capecitabine [Xeloda] 500 mg PO BID 10/16/18 [History] Prochlorperazine [Compazine] 10 mg PO TID PRN 10/16/18 [History] Sulfamethox-Tmp 800-160Mg [Bactrim DS 800-160 mg] 1 tab PO MOWEFR 10/16/18 [History] Temozolomide [Temodar] 250 mg PO DIRECTED 10/16/18 [History] Follow up Appointment(s)/Referral(s): Humble Woody MD [Primary Care Provider] - 1-2 days Discharge Disposition: DISCH TO HOSPICE MED FACILTY
--- NOTE | 2018-10-20 09:09 | P.HPIM ---
History of Present Illness H&P Date: 10/20/18 Chief Complaint: Dysphagia 68-year-old female with a history of poorly differentiated malignant neuroendocrine tumor diagnosed in 2011, currently disseminated and metastasized, failed all forms of chemo treatment. Oncologist is currently recommending h ospice care and because of that patient was admitted for hospice management. Review of Systems Unobtainable due to current mental status Past Medical History Past Medical History: Cancer, Deep Vein Thrombosis (DVT), GERD/Reflux, GI Bleed Additional Past Medical History / Comment(s): neuroendocrine tumor, renal insufficency, anemia, diverticulosis, insomnia History of Any Multi-Drug Resistant Organisms: None Reported Past Surgical History: Orthopedic Surgery Additional Past Surgical History / Comment(s): right leg broken and surgery times 2 Past Anesthesia/Blood Transfusion Reactions: No Reported Reaction Past Psychological History: Depression Smoking Status: Current every day smoker Past Alcohol Use History: None Reported Past Drug Use History: None Reported - Past Family History Mother Family Medical History: CVA/TIA Additional Family Medical History / Comment(s): blood clot Medications and Allergies Home Medications Medication Instructions Recorded Confirmed Type Calcitriol 0.5 mcg PO MOWEFR 07/19/18 10/19/18 History Magnesium Oxide [Mag-Ox] 400 mg PO DAILY 07/19/18 10/19/18 History fentaNYL 75MCG/HR PATCH [Duragesic 1 patch TRANSDERM Q72H 07/19/18 10/19/18 History 75MCG/HR] Ergocalciferol (Vitamin D2) 50,000 unit PO WE 08/06/18 10/19/18 History [Vitamin D2] Ferrous Sulfate [Iron (65 MG 325 mg PO BID 08/06/18 10/19/18 History Elemental)] Calcium Carbonate 500 mg PO DAILY 10/15/18 10/19/18 History Esomeprazole Magnesium [NexIUM] 40 mg PO DAILY 10/15/18 10/19/18 History Furosemide [Lasix] 20 mg PO DAILY 10/15/18 10/19/18 History HYDROcodone/APAP 7.5-325MG [[place] 1 tab PO Q4H PRN 10/15/18 10/19/18 History 7.5-325] Loperamide [Imodium] 2 mg PO QID 10/15/18 10/19/18 History Metoclopramide HCl [Reglan] 10 mg PO AC-TID 10/15/18 10/19/18 History Sodium Bicarbonate 650 mg PO BID 10/15/18 10/19/18 History Zolpidem Tartrate [Ambien] 10 mg PO HS 10/15/18 10/19/18 History Capecitabine [Xeloda] 500 mg PO BID 10/16/18 10/19/18 History Prochlorperazine [Compazine] 10 mg PO TID PRN 10/16/18 10/19/18 History Sulfamethox-Tmp 800-160Mg [Bactrim 1 tab PO MOWEFR 10/16/18 10/19/18 History DS 800-160 mg] Temozolomide [Temodar] 250 mg PO DIRECTED 10/16/18 10/19/18 History Allergies Allergy/AdvReac Type Severity Reaction Status Date / Time No Known Allergies Allergy Verified 10/19/18 20:34 Physical Exam Vitals: Vital Signs Temp Pulse Resp BP Pulse Ox 10/19/18 11:45 97.5 F L 118 H 18 138/62 94 L Intake and Output 10/19/18 10/20/18 10/20/18 22:59 06:59 14:59 Other: Voiding Method Bedpan Weight 51.4 kg Constitutional: No acute distress, conversant, cachectic and emaciated Eyes: Anicteric sclerae, moist conjunctiva, no lid-lag, PERRLA ENMT: Bilateral temporal wasting,Oropharynx clear, no erythema, exudates Neck:Supple, FROM, no masses, or JVD, No carotid bruits; No thyromegaly Lungs: Clear to auscultation, Clear to percussion, Normal respiratory effort, no accessory muscle use Cardiovascular: Heart regular in rate and rhythm, No murmurs, gallops, or rubs +3 bilateral lower extremity peripheral edema Abdominal: Soft Nontender, mildly distended, no guarding, no rebound or rigidity, Normoactive bowel sounds No hepatomegaly, No splenomegaly, No palpable mass No abdominal wall hernia noted Skin: Normal temperature, tone, texture, turgor, No induration No subcutaneous nodules, No rash, lesions, No ulcers Extremities:No digital cyanosis No clubbing, Pedal pulses intact and symmetrical Radial pulses intact and symmetrical Normal gait and station, No calf tenderness Psychiatric: Alert and oriented to person, place and time, Appropriate affect Intact judgement Neuro: General weakness. Non focal. Results CBC & Chem 7: 10/19/18 08:18 10/19/18 07:24 Labs: Abnormal Lab Results - Last 24 Hours (Table) 10/19/18 Range/Units 08:18 RBC 3.49 L (3.80-5.40) m/uL Hgb 11.3 L (11.4-16.0) gm/dL MCV 100.7 H (80.0-100.0) fL RDW 20.6 H (11.5-15.5) % Plt Count 144 L (150-450) k/uL Thrombosis Risk Factor Assmnt - Choose All That Apply Any of the Below Risk Factors Present?: No Other Risk Factors: Yes Each Risk Factor Represents 2 Points: Age 61-74 years, Malignancy Thrombosis Risk Factor Assessment Total Risk Factor Score: 4 Thrombosis Risk Factor Assessment Level: Moderate Risk Assessment and Plan Plan: End of life care Patient is admitted under hospice care for pain control and anxiety management. She was started on opiates, benzodiazepines and scopolamine patch.
--- NOTE | 2018-10-20 13:29 | CONS ---
CONSULTATION Consult for Myrna Murillo has been cancelled. CAT scan did not show a mass in the neck. The patient is being transferred to hospice per the nursing staff. Please contact me if I can be of any further service to you. MMODL / IJN: [id number] /
--- NOTE | 2018-10-23 11:14 | CDI ---
Documentation Clarification Form Date: 10/23/18 From: Adriana Corona Phone: If you have a question regarding this query, please contact Ting Wilhelm at [phone] between 8am and 5pm. Admit Date: 10/16/2018 4:13:00 PM Patient Name: Myrna Murillo Visit Number: [id number] Discharge Date: 10/19/2018 7:49:00 PM ATTENTION: The Clinical Documentation Specialists (CDI) and [facility] Coding Staff appreciate your assistance in clarifying documentation. Please respond to the clarification below the line at the bottom and electronically sign. The CDI & [facility] Coding staff will review the response and follow-up if needed. Please note: Queries are made part of the Legal Health Record. If you have any questions, please contact the author of this message via ITS. Dr. Eduin Amaral Acute Renal failure is documented in Dr. Thompson's consult note. History Risk factors/Other underlying illness: Dysphagia with poor oral intake, dehydration, Neuroendocrine tumor Clinical Indicators: Elevated creatinine, hyaline casts in the urine Labs: Patient presents with a BUN/CR and GFR of: 46/1.92/27 Patients baseline BUN/CR and GFR: Baseline not documented, Follow up BUN/CR and GFR: 39/1.61/38 Urinalysis: Protein 1+, Hyaline casts 11, mucus rare Treatment: Sodium chloride 1 Liter Bolus, then at 100 ml/hr In your professional opinion, can you please clarify if the condition can be further specified? Acute Renal Failure with Acute Tubular Necrosis Acute Renal Failure with Renal Cortical Necrosis Acute Renal Failure with other specified pathological cause, please specify Acute Renal Failure with other cause, please specify Unable to determine Other, please specify Patient did have acute renal failure that was prerenal MTDD
--- NOTE | 2018-10-25 13:36 | CDI ---
Documentation Clarification Form Date: 10/25/2018 1:34:00 PM From: Adriana Corona Phone: If you have a question regarding this query, please contact Ting Wilhelm at [phone] between 8am and 5pm. Admit Date: 10/16/2018 4:13:00 PM Patient Name: Myrna Murillo Visit Number: [id number] Discharge Date: 10/19/2018 7:49:00 PM ATTENTION: The Clinical Documentation Specialists (CDI) and [facility] Coding Staff appreciate your assistance in clarifying documentation. Please respond to the clarification below the line at the bottom and electronically sign. The CDI & [facility] Coding staff will review the response and follow-up if needed. Please note: Queries are made part of the Legal Health Record. If you have any questions, please contact the author of this message via ITS. Dr. Eduin Amaral The patient presented with dysphagia. History/Risk Factors: Metastatic neuroendocrine carcinoma to multiple sites. GERD Clinical Indicators: Difficulty swallowing both solids and liquids, feels like food gets stuck. Radiology findings: Barium swallow showing normal swallow. CT of the neck showing mild left oral pharyngeal space effacement thought to be related to phase of respiration, but mass would be included in the differential. Direct visualization is recommended. Vital Signs: T. 97.6, P. 116, R. 18, BP 103/72 Treatment: Because of refractory disease it was decided to keep the patient comfortable and transition to hospice care for comfort. Consults: Oncology consult neuroendocrine carcinoma metastatic to multiple sites. In your professional opinion, can you please clarify the cause of the dysphagia? Neuroendocrine carcinoma primary Metastatic neuroendocrine carcinoma Other, please specify Unable to determine Metastatic neuroendocrine carcinoma MTDD
== END 2018-10-19 19:49 | disposition hospice, inpatient (51) | DRG 843 ==
LOC: EC 11:16 → 3NMEDONC 16:13
PROVIDERS: ADMIT Family Medicine; ATTEND Family Medicine
DX: C79.9 Secondary malignant neoplasm of unspecified site (principal); E43 Unspecified severe protein-calorie malnutrition; N18.4 Chronic kidney disease, stage 4 (severe); Z68.1 Body mass index [BMI] 19.9 or less, adult; N17.9 Acute kidney failure, unspecified; C7A.1 Malignant poorly differentiated neuroendocrine tumors; R13.10 Dysphagia, unspecified; E86.0 Dehydration; F17.200 Nicotine dependence, unspecified, uncomplicated; F32.9 Major depressive disorder, single episode, unspecified; F41.9 Anxiety disorder, unspecified; G89.29 Other chronic pain; K21.9 Gastro-esophageal reflux disease without esophagitis; G47.00 Insomnia, unspecified; K57.90 Diverticulosis of intestine, part unspecified, without perforation or abscess without bleeding; R06.03 Acute respiratory distress; K52.9 Noninfective gastroenteritis and colitis, unspecified; Z79.899 Other long term (current) drug therapy; Z86.718 Personal history of other venous thrombosis and embolism; Z92.21 Personal history of antineoplastic chemotherapy; Z66 Do not resuscitate; Z51.5 Encounter for palliative care; Z82.3 Family history of stroke
CPT/HCPCS: 36415; 70490; 71045; 71250; 74230; 80053; 81001; 82150; 83690; 83735; 84100; 85025; 85027; 96361; 96374; 96376; 99285

== ENCOUNTER 2018-10-19 18:58 | Inpatient (IN) | payer MEDICAID ==
[2018-10-19] MEDS ORDERED: ONDANSETRON 4 MG/2 ML VIAL IVP PRN (19:53)
[2018-10-19] MEDS ORDERED: ATROPINE OPHTH SOLN 1% 5ML BTL SUBLINGUAL PRN (19:53)
[2018-10-19] MEDS ORDERED: ACETAMINOPHEN SUPPOSITORY 650 MG SUPP RECTAL PRN (19:53)
[2018-10-19] MEDS ORDERED: BISACODYL 10 MG SUPP RECTAL PRN (20:04)
[2018-10-19] MEDS: MORPHINE SULFATE 2 MG/ML SYRINGE IV PRN ×2 (20:21→22:16)
[2018-10-19 21:36] VITALS: BP 117/79; TEMP 97.5
[2018-10-19] MEDS: SCOPOLAMINE 1.5MG/72HR PATCH TRANSDERM SCH (22:19)
[2018-10-20] MEDS: MORPHINE SULFATE 2 MG/ML SYRINGE IV PRN ×4 (00:48→08:13)
[2018-10-20] MEDS: LORazepam 2 MG/ML INJ IV PRN (04:43)
[2018-10-20] MEDS ORDERED: MORPHINE SULFATE 2 MG/ML SYRINGE IVP ONE (08:00)
[2018-10-20] MEDS: MORPHINE SULFATE (100 MG/2 ML) 100 MG in SODIUM CHLORIDE 0.9% 100 ML IV SCH (10:06)
[2018-10-21] MEDS: MORPHINE SULFATE (100 MG/2 ML) 100 MG in SODIUM CHLORIDE 0.9% 100 ML IV SCH (00:46)
[2018-10-21] MEDS: MORPHINE SULFATE 100 MG in SODIUM CHLORIDE 0.9% 90 ML IV SCH ×2 (11:16→22:01)
[2018-10-21] MEDS ORDERED: ATROPINE OPHTH SOLN 1% 5ML BTL SUBLINGUAL PRN (12:48)
[2018-10-21] MEDS ORDERED: ARTIFICIAL TEARS-HYPROMELLOSE DROPS 15 ML BTL BOTH EYES PRN (12:48)
[2018-10-21] MEDS: ATROPINE OPHTH SOLN 1% 5ML BTL SUBLINGUAL SCH ×2 (16:08→20:24)
--- NOTE | 2018-10-21 17:51 | P.HPIM ---
History of Present Illness H&P Date: 10/20/18 Chief Complaint: Metastatic cancer 68-year-old female with a history of poorly differentiated malignant neuroendocrine tumor diagnosed in 2011, currently disseminated and metastasized, failed all forms of chemo treatment. Oncologist is currently recommending hospice care and because of that patient was admitted for hospice management. Review of Systems Unobtainable due to current mental status Past Medical History Past Medical History: Cancer, Deep Vein Thrombosis (DVT), GERD/Reflux, GI Bleed Additional Past Medical History / Comment(s): neuroendocrine tumor, renal insufficency, anemia, diverticulosis, insomnia History of Any Multi-Drug Resistant Organisms: None Reported Past Surgical History: Orthopedic Surgery Additional Past Surgical History / Comment(s): right leg broken and surgery times 2 Past Anesthesia/Blood Transfusion Reactions: No Reported Reaction Past Psychological History: Depression Smoking Status: Current every day smoker Past Alcohol Use History: None Reported Past Drug Use History: None Reported - Past Family History Mother Family Medical History: CVA/TIA Additional Family Medical History / Comment(s): blood clot Medications and Allergies Home Medications Medication Instructions Recorded Confirmed Type Calcitriol 0.5 mcg PO MOWEFR 07/19/18 10/19/18 History Magnesium Oxide [Mag-Ox] 400 mg PO DAILY 07/19/18 10/19/18 History fentaNYL 75MCG/HR PATCH [Duragesic 1 patch TRANSDERM Q72H 07/19/18 10/19/18 History 75MCG/HR] Ergocalciferol (Vitamin D2) 50,000 unit PO WE 08/06/18 10/19/18 History [Vitamin D2] Ferrous Sulfate [Iron (65 MG 325 mg PO BID 08/06/18 10/19/18 History Elemental)] Calcium Carbonate 500 mg PO DAILY 10/15/18 10/19/18 History Esomeprazole Magnesium [NexIUM] 40 mg PO DAILY 10/15/18 10/19/18 History Furosemide [Lasix] 20 mg PO DAILY 10/15/18 10/19/18 History HYDROcodone/APAP 7.5-325MG [[place] 1 tab PO Q4H PRN 10/15/18 10/19/18 History 7.5-325] Loperamide [Imodium] 2 mg PO QID 10/15/18 10/19/18 History Metoclopramide HCl [Reglan] 10 mg PO AC-TID 10/15/18 10/19/18 History Sodium Bicarbonate 650 mg PO BID 10/15/18 10/19/18 History Zolpidem Tartrate [Ambien] 10 mg PO HS 10/15/18 10/19/18 History Capecitabine [Xeloda] 500 mg PO BID 10/16/18 10/19/18 History Prochlorperazine [Compazine] 10 mg PO TID PRN 10/16/18 10/19/18 History Sulfamethox-Tmp 800-160Mg [Bactrim 1 tab PO MOWEFR 10/16/18 10/19/18 History DS 800-160 mg] Temozolomide [Temodar] 250 mg PO DIRECTED 10/16/18 10/19/18 History Allergies Allergy/AdvReac Type Severity Reaction Status Date / Time No Known Allergies Allergy Verified 10/19/18 20:34 Physical Exam Vitals: Intake and Output 10/21/18 10/21/18 10/21/18 06:59 14:59 22:59 Intake Total 31.100 80 Balance 31.100 80 Intake: Intake, IV Titration 31.100 80 Amount Morphine Sulfate (100 mg/ 31.100 2 ml) 100 mg In Sodium Chloride 0.9% 100 ml @ 2 MG/HR 2.04 mls/hr IV . Q24H [facility] Rx#:[id number] Morphine Sulfate 100 mg 80 In Sodium Chloride 0.9% 90 ml @ 2 MG/HR 2 mls/hr IV .Q24H [facility] Rx#: [id number] Other: Voiding Method Bedpan # Voids 2 3 Constitutional: No acute distress, conversant, cachectic and emaciated Eyes: Anicteric sclerae, moist conjunctiva, no lid-lag, PERRLA ENMT: Bilateral temporal wasting,Oropharynx clear, no erythema, exudates Neck:Supple, FROM, no masses, or JVD, No carotid bruits; No thyromegaly Lungs: Clear to auscultation, Clear to percussion, Normal respiratory effort, no accessory muscle use Cardiovascular: Heart regular in rate and rhythm, No murmurs, gallops, or rubs +3 bilateral lower extremity peripheral edema Abdominal: Soft Nontender, mildly distended, no guarding, no rebound or rigidity, Normoactive bowel sounds No hepatomegaly, No splenomegaly, No palpable mass No abdominal wall hernia noted Skin: Normal temperature, tone, texture, turgor, No induration No subcutaneous nodules, No rash, lesions, No ulcers Extremities:No digital cyanosis No clubbing, Pedal pulses intact and symmetrical Radial pulses intact and symmetrical Normal gait and station, No calf tenderness Psychiatric: Alert and oriented to person, place and time, Appropriate affect Intact judgement Neuro: General weakness. Non focal. Assessment and Plan Plan: Assessment and Plan Plan: End of life care Patient is admitted under hospice care for pain control and anxiety management. She was started on opiates, benzodiazepines and scopolamine patch.
--- NOTE | 2018-10-21 17:53 | P.PN ---
Subjective Progress Note Date: 10/21/18 Principal diagnosis: Metastatic cancer Patient seems comfortable, all concerns and questions addressed to the family. Objective - Vital Signs Vital signs: Vital Signs Temp 97.5 F L 10/19/18 21:35 Pulse 87 10/19/18 21:35 Resp 16 10/20/18 16:00 BP 117/79 10/19/18 21:35 Pulse Ox 97 10/19/18 21:35 Intake & Output 10/20/18 10/21/18 10/21/18 18:59 06:59 18:59 Intake Total 26.714 51.050 80 Balance 26.714 51.050 80 Intake: Intake, IV Titration 26.714 51.050 80 Amount Morphine Sulfate (100 mg/ 26.714 51.050 2 ml) 100 mg In Sodium Chloride 0.9% 100 ml @ 2 MG/HR 2.04 mls/hr IV . Q24H [facility] Rx#:[id number] Morphine Sulfate 100 mg 80 In Sodium Chloride 0.9% 90 ml @ 2 MG/HR 2 mls/hr IV .Q24H [facility] Rx#: [id number] Other: Voiding Method Bedpan Bedpan Bedpan # Voids 6 2 3 - Exam Constitutional: No acute distress, lethargic, cachectic and emaciated Eyes: Anicteric sclerae, moist conjunctiva, no lid-lag, PERRLA ENMT: Bilateral temporal wasting,Oropharynx clear, no erythema, exudates Neck:Supple, FROM, no masses, or JVD, No carotid bruits; No thyromegaly Lungs: Clear to auscultation, Clear to percussion, Normal respiratory effort, no accessory muscle use Cardiovascular: Heart regular in rate and rhythm, No murmurs, gallops, or rubs +3 bilateral lower extremity peripheral edema Abdominal: Soft Nontender, mildly distended, no guarding, no rebound or rigidity, Normoactive bowel sounds No hepatomegaly, No splenomegaly, No palpable mass No abdominal wall hernia noted Skin: Normal temperature, tone, texture, turgor, No induration No subcutaneous nodules, No rash, lesions, No ulcers Extremities:No digital cyanosis No clubbing, Pedal pulses intact and symmetrical Radial pulses intact and symmetrical Normal gait and station, No calf tenderness Psychiatric: Alert and oriented to person, place and time, Appropriate affect Intact judgement Neuro: General weakness. Non focal. Assessment and Plan Plan: Assessment and Plan Plan: End of life care Patient is admitted under hospice care for pain control and anxiety management. She was started on opiates, benzodiazepines and scopolamine patch.
[2018-10-22] MEDS: ATROPINE OPHTH SOLN 1% 5ML BTL SUBLINGUAL SCH ×7 (00:05→23:30)
[2018-10-22] MEDS: LORazepam 2 MG/ML INJ IV PRN (02:46)
[2018-10-22] MEDS: MORPHINE SULFATE 100 MG in SODIUM CHLORIDE 0.9% 90 ML IV SCH ×3 (06:28→23:27)
--- NOTE | 2018-10-22 10:51 | P.PN ---
Subjective Progress Note Date: 10/22/18 Principal diagnosis: Metastatic cancer Patient is currently comfortable, no issues. Objective - Vital Signs Vital signs: Vital Signs Temp 97.5 F L 10/19/18 21:35 Pulse 87 10/22/18 00:40 Resp 16 10/22/18 00:40 BP 117/79 10/19/18 21:35 Pulse Ox 96 10/21/18 19:47 Intake & Output 10/21/18 10/22/18 10/22/18 18:59 06:59 18:59 Intake Total 80 116.034 Output Total 100 Balance 80 16.034 Intake: Intake, IV Titration 80 116.034 Amount Morphine Sulfate 100 mg 80 116.034 In Sodium Chloride 0.9% 90 ml @ 2 MG/HR 2 mls/hr IV .Q24H [facility] Rx#: [id number] Output: Urine 100 Other: Voiding Method Bedpan Bedpan # Voids 3 1 - Exam Constitutional: No acute distress, lethargic, cachectic and emaciated Eyes: Anicteric sclerae, moist conjunctiva, no lid-lag, PERRLA ENMT: Bilateral temporal wasting,Oropharynx clear, no erythema, exudates Neck:Supple, FROM, no masses, or JVD, No carotid bruits; No thyromegaly Lungs: Clear to auscultation, Clear to percussion, Normal respiratory effort, no accessory muscle use Cardiovascular: Heart regular in rate and rhythm, No murmurs, gallops, or rubs +3 bilateral lower extremity peripheral edema Abdominal: Soft Nontender, mildly distended, no guarding, no rebound or rigidity, Normoactive bowel sounds No hepatomegaly, No splenomegaly, No palpable mass No abdominal wall hernia noted Skin: Normal temperature, tone, texture, turgor, No induration No subcutaneous nodules, No rash, lesions, No ulcers Extremities:No digital cyanosis No clubbing, Pedal pulses intact and symmetrical Radial pulses intact and symmetrical Normal gait and station, No calf tenderness Psychiatric: Alert and oriented to person, place and time, Appropriate affect Intact judgement Neuro: General weakness. Non focal. Assessment and Plan Plan: Assessment and Plan Plan: End of life care Patient is admitted under hospice care for pain control and anxiety management. Continue on morphine drip, Ativan when necessary, scopolamine patch.
[2018-10-22] MEDS: SCOPOLAMINE 1.5MG/72HR PATCH TRANSDERM SCH (22:04)
[2018-10-23] MEDS: ATROPINE OPHTH SOLN 1% 5ML BTL SUBLINGUAL SCH ×5 (03:07→19:38)
[2018-10-23] MEDS: MORPHINE SULFATE 100 MG in SODIUM CHLORIDE 0.9% 90 ML IV SCH ×3 (08:01→23:20)
--- NOTE | 2018-10-23 09:43 | P.PN ---
Subjective Progress Note Date: 10/23/18 Principal diagnosis: Metastatic cancer Patient appears comfortable. She is currently unresponsive. Objective - Vital Signs Vital signs: Vital Signs Temp 97.5 F L 10/19/18 21:35 Pulse 87 10/23/18 00:00 Resp 16 10/23/18 00:00 BP 117/79 10/19/18 21:35 Pulse Ox 96 10/21/18 19:47 Intake & Output 10/22/18 10/23/18 10/23/18 18:59 06:59 18:59 Intake Total 196 190 100 Output Total 500 500 Balance -304 -310 100 Intake: IV 96 90 Morphine Sulfate 100 mg 96 90 In Sodium Chloride 0.9% 90 ml @ 2 MG/HR 2 mls/hr IV .Q24H [facility] Rx#: [id number] Intake, IV Titration 100 100 100 Amount Morphine Sulfate 100 mg 100 100 100 In Sodium Chloride 0.9% 90 ml @ 2 MG/HR 2 mls/hr IV .Q24H [facility] Rx#: [id number] Oral 0 Output: Urine 500 500 Other: Voiding Method Bedpan # Voids 1 - Exam Constitutional: No acute distress, lethargic, cachectic and emaciated Eyes: Anicteric sclerae, moist conjunctiva, no lid-lag, PERRLA ENMT: Bilateral temporal wasting,Oropharynx clear, no erythema, exudates Neck:Supple, FROM, no masses, or JVD, No carotid bruits; No thyromegaly Lungs: Clear to auscultation, Clear to percussion, slow breathing, no accessory muscle use Cardiovascular: Heart regular in rate and rhythm, No murmurs, gallops, or rubs +3 bilateral lower extremity peripheral edema Abdominal: Soft, mildly distended, no guarding, no rebound or rigidity, Normoactive bowel sounds No hepatomegaly, No splenomegaly, No palpable mass No abdominal wall hernia noted Skin: Normal temperature, tone, texture, turgor, No induration No subcutaneous nodules, No rash, lesions, No ulcers Extremities:No digital cyanosis No clubbing, Pedal pulses intact and symmetrical Radial pulses intact and symmetrical Normal gait and station, No calf tenderness Neuro: Stuporous. Assessment and Plan Plan: Assessment and Plan Plan: End of life care Patient seems to be comfortable, all family questions were addressed. No changes. Continue on morphine drip, Ativan when necessary, scopolamine patch.
[2018-10-23 13:48] VITALS: PULSE 66; RESP 8
[2018-10-23] MEDS: LORazepam 2 MG/ML INJ IV PRN (14:36)
[2018-10-23] MEDS: SCOPOLAMINE 1.5MG/72HR PATCH TRANSDERM SCH (15:17)
[2018-10-24] MEDS: ATROPINE OPHTH SOLN 1% 5ML BTL SUBLINGUAL SCH ×3 (00:09→07:31)
[2018-10-24] MEDS: LORazepam 2 MG/ML INJ IV PRN ×2 (04:20→11:34)
[2018-10-24] MEDS: MORPHINE SULFATE 100 MG in SODIUM CHLORIDE 0.9% 90 ML IV SCH (07:32)
[2018-10-24] MEDS: MORPHINE SULFATE 2 MG/ML SYRINGE IV PRN (12:21)
[2018-10-24] MEDS ORDERED: LORazepam 2 MG/ML INJ IM PRN (12:43)
--- NOTE | 2018-10-24 16:52 | P.DS ---
Providers Date of admission: 10/19/18 19:52 Expected date of discharge: 10/24/18 Attending physician: Reilly Brower MD Primary care physician: Humble Woody - Discharge Diagnosis(es) (1) Chronic kidney disease, stage IV (severe) Status: Acute (2) Neuroendocrine carcinoma metastatic to multiple sites Status: Chronic Priority: High Hospital Course: 68-year-old female with a history of poorly differentiated malignant neuroendocrine tumor diagnosed in 2011, disseminated and metastasized, failed all forms of chemo treatment. Oncologist recommended hospice care. Patient was admitted for inpatient hospice. All family involved in this decision making. She was started on morphine gtt, ativan and scopolamine. Patient . Plan - Discharge Summary New Discharge Prescriptions: No Action fentaNYL 75MCG/HR PATCH [Duragesic 75MCG/HR] 1 patch TRANSDERM Q72H Calcitriol 0.5 mcg PO MOWEFR Magnesium Oxide [Mag-Ox] 400 mg PO DAILY Ergocalciferol (Vitamin D2) [Vitamin D2] 50,000 unit PO WE Ferrous Sulfate [Iron (65 MG Elemental)] 325 mg PO BID Loperamide [Imodium] 2 mg PO QID Sodium Bicarbonate 650 mg PO BID Metoclopramide HCl [Reglan] 10 mg PO AC-TID HYDROcodone/APAP 7.5-325MG [[place] 7.5-325] 1 tab PO Q4H PRN PRN Reason: Pain Furosemide [Lasix] 20 mg PO DAILY Esomeprazole Magnesium [NexIUM] 40 mg PO DAILY Calcium Carbonate 500 mg PO DAILY Zolpidem Tartrate [Ambien] 10 mg PO HS Sulfamethox-Tmp 800-160Mg [Bactrim DS 800-160 mg] 1 tab PO MOWEFR Prochlorperazine [Compazine] 10 mg PO TID PRN PRN Reason: Nausea Temozolomide [Temodar] 250 mg PO DIRECTED Capecitabine [Xeloda] 500 mg PO BID Discharge Medication List Calcitriol 0.5 mcg PO MOWEFR 07/19/18 [History] Magnesium Oxide [Mag-Ox] 400 mg PO DAILY 07/19/18 [History] fentaNYL 75MCG/HR PATCH [Duragesic 75MCG/HR] 1 patch TRANSDERM Q72H 07/19/18 [History] Ergocalciferol (Vitamin D2) [Vitamin D2] 50,000 unit PO WE 08/06/18 [History] Ferrous Sulfate [Iron (65 MG Elemental)] 325 mg PO BID 08/06/18 [History] Calcium Carbonate 500 mg PO DAILY 10/15/18 [History] Esomeprazole Magnesium [NexIUM] 40 mg PO DAILY 10/15/18 [History] Furosemide [Lasix] 20 mg PO DAILY 10/15/18 [History] HYDROcodone/APAP 7.5-325MG [[place] 7.5-325] 1 tab PO Q4H PRN 10/15/18 [History] Loperamide [Imodium] 2 mg PO QID 10/15/18 [History] Metoclopramide HCl [Reglan] 10 mg PO AC-TID 10/15/18 [History] Sodium Bicarbonate 650 mg PO BID 10/15/18 [History] Zolpidem Tartrate [Ambien] 10 mg PO HS 10/15/18 [History] Capecitabine [Xeloda] 500 mg PO BID 10/16/18 [History] Prochlorperazine [Compazine] 10 mg PO TID PRN 10/16/18 [History] Sulfamethox-Tmp 800-160Mg [Bactrim DS 800-160 mg] 1 tab PO MOWEFR 10/16/18 [History] Temozolomide [Temodar] 250 mg PO DIRECTED 10/16/18 [History] Discharge Disposition: - Preliminary Cause of Preliminary Cause of : Metastatic cancer
== END 2018-10-24 14:40 | disposition expired | DRG 951 ==
LOC: 3NMEDONC 19:52
PROVIDERS: ADMIT Internal Medicine; ATTEND Internal Medicine
DX: Z51.5 Encounter for palliative care (principal); C79.9 Secondary malignant neoplasm of unspecified site; C7A.1 Malignant poorly differentiated neuroendocrine tumors; N18.4 Chronic kidney disease, stage 4 (severe); Z66 Do not resuscitate; F17.200 Nicotine dependence, unspecified, uncomplicated; F32.9 Major depressive disorder, single episode, unspecified; K21.9 Gastro-esophageal reflux disease without esophagitis; G47.00 Insomnia, unspecified; K57.90 Diverticulosis of intestine, part unspecified, without perforation or abscess without bleeding; F41.9 Anxiety disorder, unspecified; R52 Pain, unspecified; Z79.899 Other long term (current) drug therapy; Z86.718 Personal history of other venous thrombosis and embolism; Z92.21 Personal history of antineoplastic chemotherapy; Z82.3 Family history of stroke; Z82.49 Family history of ischemic heart disease and other diseases of the circulatory system